=== PATIENT | male | born 1950 | race Caucasian/White ===

== ENCOUNTER 2018-05-28 18:50 | Emergency (ER) | payer OTHER, MEDICAID ==
[~2018-05-28] VITALS: Ht 152.4 cm; Wt 61.2 kg
[2018-05-28 18:56] VITALS: BP 145/67
--- NOTE | 2018-05-28 18:56 | NUR ---
Deepa heller in ED - 05/28/18 at 1858 by [facility] PT BIB AMBULANCE TO BED 12
--- NOTE | 2018-05-28 19:14 | NUR ---
PT PRESENTS TO ED BIB CARE FACILITY WITH C/O DISLODGEMENT OF PRE-EXISTING G-TUBE. NO OTHER COMLPAINTS AT THIS TIME. GTUBE SITE DRESSED WITH GAUZE DRESSING UPON ARRIVAL. NO BLEEDING NOTED TO SITE. PT PLACED INTO BED, PENDING MD CACERES. HX---MRCP, SEIZURE, G-TUBE, THYROID, HTN RX==BISACODYL 10MG, FOSAMAX 70MG, ASA 81MG, BUDESONIDE 0.5MG, CALCIUM CARB, DEPAKOTE 125MG, FLORASTOR, LAMICTAL 200MG, SYNTHROID 100MCG, LISINOPRIL 10MG, SINGULAIR 10MG, MIRALAX,
--- NOTE | 2018-05-28 19:56 | NUR ---
SPOKE WITH ADELAIDE FROM CARE FACILITY--INFORMED ME OF GTUBE SIZE OF 30F.
--- NOTE | 2018-05-28 21:36 | NUR ---
X-Ray at bedside.
--- NOTE | 2018-05-28 22:01 | NUR ---
SPOKE WITH ISAIAH FROM [facility] CARE [facility] FOR PT PICKUP
--- NOTE | 2018-05-28 23:33 | NUR ---
Patient discharged with v/s stable. Written and verbal after care instructions given and explained. Patient verbalized understanding. Wheel Chair Assisted with by caregiver. All questions addressed prior to discharge. Advised to follow up with PMD.
[2018-05-28 23:34] VITALS: BP 138/61
== END 2018-05-28 23:33 | disposition home or self-care (01) ==
LOC: MED 18:50
DX: K94.23 Gastrostomy malfunction (principal); I10 Essential (primary) hypertension; E07.9 Disorder of thyroid, unspecified
CPT/HCPCS: 43762; 74241; 99284

== ENCOUNTER 2020-09-14 14:49 | Inpatient (IN) | payer OTHER, MEDICAID, SELFPAY ==
[~2020-09-14] VITALS: Ht 162.6 cm; Wt 57.6 kg
[~2020-09-14 14:49] MED LIST: ALEN70TA85 GT; ASCO500T95 GT; ASPI-1822 GT; BISA-218 RC; CHOL2400 GT; DIVA125E1 GT; FLOR250 GT; LAM200 PO; LEVO500T98 GT; MIRABULK GT; OSC500 GT; POTA8TER12 GT; PUL.5N NEB; SYN.1 GT; TOP100 GT
--- NOTE | 2020-09-14 14:50 | NUR ---
PT [place] to bed 07 via estela.
[2020-09-14 14:55] VITALS: BP 120/80
--- NOTE | 2020-09-14 15:02 | NUR ---
70/M biba to ED with c/o abdominal distention. Patient brought in from senior living, per staff, patients abdomen is more distended than usual. Staff contacted patients primary doctor who suggested he be sent to ED to be checked out. Patient is nonverbal and at baseline according to staff, patient is quadriplegic, g-tube in place. Abomen appears distended and rigid, patient placed on bedside cardiac surgeon.
[2020-09-14] MEDS ORDERED: NACL 0.9% 1,000 ML IV ONE (15:25)
[2020-09-14 16:14] LABS: BASOPHILS # (AUTO) 0.1 K/uL (0.00-0.22); BASOPHILS % (AUTO) 0.6 % (0.0-2.0); EOSINOPHILS # (AUTO) 0.2 K/uL (0-0.4); EOSINOPHILS % (AUTO) 2.6 % (0.0-4.0); HEMATOCRIT 47.1 % (36-52); HEMOGLOBIN 15.9 g/dL (12.0-18.0); LYMPHOCYTES # (AUTO) 2.6 K/uL (2.0-11.5); MEAN CORPUSCULAR HEMOGLOBIN 34 pg (27-31); MEAN CORPUSCULAR HGB CONC 34 g/dL (33-37); MEAN CORPUSCULAR VOLUME 100.8 fL (80-94); MONOCYTES % (AUTO) 10.6 % (1.7-9.3); NEUTROPHILS # (AUTO) 5.4 K/uL (1.8-7.7); NEUTROPHILS % (AUTO) 58.2 % (42.2-75.2); PLATELET COUNT (AUTO) 192 K/uL (140-450); RED BLOOD CELL COUNT(AUTO) 4.67 MIL/uL (4.20-6.10); RED CELL DISTRIBUTION WIDTH 13.6 % (11.6-13.7); WHITE BLOOD COUNT (AUTO) 9.2 K/uL (4.8-10.8)
--- NOTE | 2020-09-14 16:20 | NUR ---
Attemted to obtain urine via catheter as ordered, unsuccessful, Dr. Wagner made aware.
[2020-09-14 16:28] LABS: ANION GAP 12.8 (8-16); CARBON DIOXIDE 27.1 mmol/L (21-32); POTASSIUM 3.9 mmol/L (3.5-5.1)
[2020-09-14] MEDS ORDERED: FLOR250 GT (16:28)
[2020-09-14] MEDS ORDERED: SIME80TA22 GT (16:28)
[2020-09-14] MEDS ORDERED: CHOL100013 GT (16:28)
[2020-09-14] MEDS ORDERED: POTA10TE31 GT (16:28)
[2020-09-14] MEDS ORDERED: MONT10TA35 GT (16:28)
[2020-09-14 16:43] LABS: ALBUMIN 3.1 g/dL (3.4-5.0); TOTAL BILIRUBIN 0.4 mg/dL (0.0-1.0)
--- NOTE | 2020-09-14 17:00 | NUR ---
Kelsey swab collected and given to lab.
--- NOTE | 2020-09-14 17:10 | NUR ---
PT taken to CT via ramber.
--- NOTE | 2020-09-14 19:17 | NUR ---
RECEIVED REPORT FROM MARIANN LUCAS FOR [facility]
[2020-09-14] MEDS ORDERED: cefTRIAXone 1,000 MG VIAL ONE (19:24)
[2020-09-14] MEDS ORDERED: DEXT 5% / NACL 0.45% 1,000 ML IV ONE (20:45)
--- NOTE | 2020-09-14 21:55 | NUR ---
UNABLE TO OBTAIN URINE VIA STRAIGHT CATHETERIZATION. URINE COLLECTION ENDORSED TO NEY LUCAS DURING REPORT.
--- NOTE | 2020-09-14 22:04 | NUR ---
Patient will be admitted to care of DR. HARRY. Admited to MED-SURG. Will go to room 120A. Belongings list completed. Report to NEY LUCAS.
[2020-09-14 22:10] VITALS: BP 102/68
--- NOTE | 2020-09-14 22:10 | NUR ---
RECEIVED PATIENT FROM ER NURSE VIA [facility] FOR CONTINUITY OF CARE. OPENS EYES, UNABLE TO MAKE NEEDS KNOWN. RESPIRATIONS EVEN, UNLABORED. NO S/S RESPIRATORY DISTRESS. S1/S2 AUSCULTATED. MEDSURG PATIENT. SKIN ASSESSMENT COMPLETED. SKIN WARM, DRY AND INTACT. IV SITE NOTED TO RIGHT FOOT 22G PATENT/INTACT, INFUSING FLUIDS WELL. ABDOMEN ROUND, LARGE AND DISTENDED. BOWEL SOUNDS ACTIVE x4 QUADRANTS. GT NOTED. PATIENT IS INCONTINENT OF B/B. MRSA SCREEN COMPLETED. PATIENT ORIENTED TO ROOM/STAFF/CALL LIGHT. PLAN OF CARE DISCUSSED. CALL LIGHT IN REACH. SAFETY PRECAUTIONS IN PLACE.
[2020-09-14 23:23] LABS: APPEARANCE,URINE CLEAR (CLEAR); BILIRUBIN,URINE NEGATIVE (NEGATIVE); BLOOD, URINE 3+ (NEGATIVE); COLOR,URINE YELLOW (YELLOW); LEUKOCYTE ESTERASE ,URINE 3+ (NEGATIVE); NITRITE, URINE NEGATIVE (NEGATIVE); PH,URINE 8.5 (5.0-9.0); UGLUCOSE NEGATIVE (NEGATIVE)
[2020-09-14 23:42] LABS: RBC,URINE 0-5 /HPF (0-5)
--- NOTE | 2020-09-14 23:50 | NUR ---
CALLED [facility] AT [phone] AND SPOKE TO BENJA DRAPER. FOR FURTHER INFORMATION FOR PATIENT, HE STATED TO CALL SHAYY WORKMAN AT [phone] IN THE MORNING FOR ANY QUESTIONS REGARDING PATIENT. PATIENT IS RESTING COMFORTABLY IN BED. NO S/S RESPIRATORY DISTRESS. FLACC 0. PATIENT CLEAN/DRY. SAFETY PRECAUTIONS IN PLACE. CALL LIGHT IN REACH AT ALL TIMES.
--- NOTE | 2020-09-15 00:19 | NUR ---
WILL ENDORSE TO AM SHIFT TO CALL [facility] IN THE MORNING TO TALK TO SHAYY WORKMAN REGARDING LACK OF GTUBE SYRINGE FOR PATIENT. PER BONNY YOUSIF, WE NEED TO TALK TO JACINTA.
--- NOTE | 2020-09-15 03:01 | NUR ---
PATIENT IS ASLEEP.
[2020-09-15] MEDS ORDERED: ONDANSETRON 4 MG/2 ML VIAL IVP PRN (03:20)
[2020-09-15] MEDS ORDERED: LORazepam 2 MG/ML VIAL IVP PRN (03:20)
[2020-09-15 04:00] VITALS: BP 104/57
--- NOTE | 2020-09-15 05:17 | NUR ---
PATIENT IS SLEEPING WELL. NO S/S ACUTE DISTRESS. PATIENT CLEAN/DRY. CALL LIGHT IN REACH. SAFETY PRECAUTIONS IN PLACE.
[2020-09-15 05:50] LABS: CARBON DIOXIDE 21.5 mmol/L (21-32); CREATININE 0.9 mg/dL (0.6-1.3); POTASSIUM 3.5 mmol/L (3.5-5.1)
[2020-09-15 06:47] LABS: BASOPHILS # (AUTO) 0.1 K/uL (0.00-0.22); BASOPHILS % (AUTO) 0.5 % (0.0-2.0); EOSINOPHILS # (AUTO) 0.2 K/uL (0-0.4); EOSINOPHILS % (AUTO) 1.7 % (0.0-4.0); HEMATOCRIT 45.6 % (36-52); HEMOGLOBIN 15.7 g/dL (12.0-18.0); LYMPHOCYTES # (AUTO) 1.4 K/uL (2.0-11.5); LYMPHOCYTES % (AUTO) 12.7 % (20.5-51.1); MEAN CORPUSCULAR HEMOGLOBIN 34 pg (27-31); MEAN CORPUSCULAR HGB CONC 35 g/dL (33-37); MEAN CORPUSCULAR VOLUME 98.7 fL (80-94); MONOCYTES # (AUTO) 1.2 K/uL (0.8-1.0); MONOCYTES % (AUTO) 11.1 % (1.7-9.3); NEUTROPHILS # (AUTO) 8.2 K/uL (1.8-7.7); PLATELET COUNT (AUTO) 182 K/uL (140-450); RED BLOOD CELL COUNT(AUTO) 4.62 MIL/uL (4.20-6.10); RED CELL DISTRIBUTION WIDTH 13.7 % (11.6-13.7)
[2020-09-15] MEDS: BUDESONIDE 0.5 MG/2 ML NEBU INH SCH ×2 (07:12→19:41)
--- NOTE | 2020-09-15 07:24 | NUR ---
PATIENT SEEN BY DR CHEN UROLOGIST AND INSERTED SAMPSON BUT URETHRAL RESTRICTION AND UNABLE TO INSERT SAMPSON.
--- NOTE | 2020-09-15 07:32 | NUR ---
ENDORSED PATIENT TO AM SHIFT NURSE FOR CONTINUITY OF CARE.
--- NOTE | 2020-09-15 07:36 | NUR ---
RECEIVED REPORT FROM NIGHT NURSE PATIENT IS AWAKE ON ROOM AIR, NON AMBULATORY, INCONTINENT, SKIN INTACT ON RESTRAINT MITTENS ON BOTH HAND PAT TRIES TO SCRATCH SELF, IV INTACT ON RIGHT FOOT WITH D5 0.45% SODIUM CHLORIDE 1000ML AT 100 MLS/HR. WITH GTUBE . SAFETY MEASURES IN PLACE AND CALL LIGHT WITHIN REACH. WILL CONTINUE TO MONITOR.
--- NOTE | 2020-09-15 08:00 | NUR ---
PATIENT ON MITTENS RESTRAIN ASSESSED AND RELEASED FOR 15 MINS, NO INCIDENT OF PATIENT SCRATCHING. PT IS STABLE AND NO DISTRESS NOTED.
--- NOTE | 2020-09-15 08:53 | NUR ---
PATIENT HAS BEEN SCREENED AND CATEGORIZED HIGH NUTRITION RISK. PATIENT WILL BE SEEN WITHIN 1-2 DAYS OF ADMISSION. 09/15/20-09/16/20 [facility] CONSULT RECEIVED FOR TUBE FEEDING AND FNS REFERRAL RECEIVED FOR DYSPHAGIA AND TUBE FEEDING. ERICA SAVAGE RD
[2020-09-15] MEDS ORDERED: NON-FORMULARY ITEM (Saccharomyces Boulardii* (Florastor*) 250 MG) GT SCH (09:00)
[2020-09-15] MEDS: TOPIRAMATE 100 MG TAB GT SCH ×2 (09:00→22:05)
[2020-09-15] MEDS ORDERED: NON-FORMULARY ITEM (Cholecalciferol (Vitamin D3) (Vitamin D3) 2,000 U) GT SCH (09:00)
[2020-09-15] MEDS: SIMETHICONE 40 MG/0.6 ML GT SCH ×4 (09:00→22:04)
[2020-09-15] MEDS: POLYETHYLENE GLYCOL 17 GM/PKT GT SCH (09:00)
[2020-09-15] MEDS ORDERED: LEVOTHYROXINE 0.1 MG TAB GT SCH (09:00)
[2020-09-15] MEDS: ASPIRIN 81 MG TAB.CHEW GT SCH (09:00)
[2020-09-15] MEDS: POTASSIUM CHLORIDE 20% 40 MEQ/15 ML UDC PO SCH (09:00)
[2020-09-15] MEDS: ASCORBIC ACID 500 MG TAB GT SCH ×2 (09:00→22:05)
[2020-09-15] MEDS: DIVALPROEX SPRINKLES 125 MG CAPDR GT SCH ×2 (09:00→22:03)
[2020-09-15] MEDS: CHOLECALCIFEROL 1,000 IU TAB GT SCH ×2 (09:00→22:06)
[2020-09-15] MEDS: LACTOBACILLUS RHAMNOSUS GG 1 EACH CAP GT SCH (09:00)
[2020-09-15] MEDS: CALCIUM CARBONATE 500 MG TAB GT SCH ×2 (09:00→22:04)
[2020-09-15] MEDS ORDERED: BUDESONIDE 0.5 MG/2 ML NEBU INH SCH (09:00)
--- NOTE | 2020-09-15 09:42 | NUR ---
MEDICATION DUE NON ADMINISTRATION PATIENT IS ON NOTHING BY MOUTH.
--- NOTE | 2020-09-15 09:49 | NUR ---
CALLED JACINTA LUCAS OF [facility] REGARDING PATIENT G TUBE CONNECTOR AND SAID SHE WOULD BE SENDING SYRINGES FOR THE GTUBE.
--- NOTE | 2020-09-15 10:00 | NUR ---
CHECK PATIENT RESTRAIN AND RELEASE FOR 15 MINS. PATIENT ON MITTENS RESTRAIN TO PREVENT PATIENT FROM SCRATCHING, NO INJURIES NOTED, PT IS STABLE.
--- NOTE | 2020-09-15 12:00 | NUR ---
MADE ROUNDS AND CHECK PT MITTENS RESTRAIN RELEASED FOR 15 MONS NO INJURIES NOTED, PT IS CALM AND STABLE.
--- NOTE | 2020-09-15 13:59 | NUR ---
09/15/20 RD INITIAL ASSESSMENT COMPLETED PLEASE REFER TO NUTRITION ASSESSMENT UNDER CARE ACTIVITY FOR ESTIMATED NUTRITIONAL NEEDS. 1. RECOMMEND JEVITY 1.2 @ 60ML/HR OR 1440 ML/DAY, FREE WATER FLUSH 95 ML Q4H. -THIS WILL PROVIDE 1728 KCAL, 80 GM PROTEIN WHICH WILL MEET ADEQUATE NUTRIENT NEEDS. 2. RD TO FOLLOW-UP 2-3 DAYS, HIGH RISK ERICA SAVAGE, RD
--- NOTE | 2020-09-15 14:00 | NUR ---
MADE ROUNDS REASSESSED PATIENT MITTENS RESTRAIN AND 15 MINS RELEASED, NO INJURIES NOTED PATIENT IS CALM AND RESTING.
--- NOTE | 2020-09-15 16:00 | NUR ---
MADE ROUND AND REASSESSED PATIENT ON RESTRAIN NO INJURIES NOTED AND RELEASED FOR 15 MINS. PATIENT IS STABLE AND CALM.
--- NOTE | 2020-09-15 16:48 | NUR ---
MEDICATION DUE NON ADMIN PT IS STILL NPO.
--- NOTE | 2020-09-15 16:56 | NUR ---
DC PLANNIN YRS OLD MALE PATIENT WAS ADMITTED FROM [facility] WITH A DX OF BLADDER OBSTRUCTION. PATIENT HAS A HX OF QUADRIPLEGIA ,SEIZURE, HYPOTHYROIDISM AND G-TUBE. CXR SHOWED CARDIOMEGALY ,MILD DEXTROSCOLIOSIS. RAPID COVID TEST NEGATIVE, URINE AND BLOOD CULTURE PENDING. STARTED ON IVF, IV ABX ROCEPHIN.CONTINUED HOME MEDS. CONSULTED WITH UROLOGIST FOR POSSIBLE CYSTOSCOPY ,URETHRAL DILATION, SAMPSON CATHETER. DC PLAN TO GO BACK TO [facility]. CM TO FOLLOW Addendum: 09/15/20 at 1712 by Mary Hamm RN DC PLANNING CALLED CASH POSTER ALANA ADAMS [phone] NOTIFIED HER PT NEEDS CONSENT FOR CYSTOSCOPY PER ALANA [facility] [phone]. CALLED LIZ UNABLE TO LEAVE MESSAGE. PER ALANA Moses DR CAN SIGN THE CONSENT AND PERFORM THE PROCEDURE. Addendum: 09/16/20 at 0833 by Mary Hamm RN DC PLANNING: CALLED LIZ AT [facility] AT [phone] LEFT A MESSAGE. CM TO FOLLOW Addendum: 09/16/20 at 0912 by Mary Hamm RN DC PLANNING: RECEIVED A CALL FROM [facility] [phone] DISCUSSED THE URGENT NEED FOR CONSENT FOR CYSTOSCOPY, URETHRAL DILATION, PER LIZ UNABLE TO GIVE CONSENT BY HERSELF, THERE IS A BROTHER NAME ELKIN RIVERA CAN GIVE CONSENT #[phone] IF ELKIN CAN NOT BE REACHED , THE [facility] NURSE HAS TO REVIEW IT IN DETAIL NEEDS A PROGRESS NOTES TYPE OF PROCEDURE, WHAT TYPE OF ANESTHESIA WILL BE USED. THE PROCESS MIGHT TAKE LONGER TIME. BUT IF THE 2 DOCTORS DECIDED IT IS URGENT CAN SIGNED THE CONSENT AND PERFORM THE PROCEDURE. CM TO FOLLOW Addendum: 09/16/20 at 1505 by Mary Hamm RN DC PLANNING: CALLED DR CHEN UROLOGIST DISCUSSED THE ISSUES FOR CONSENT. HE STATED HE IS NOT AVAILABLE TO PERFORM CYSTOSCOPY TODAY BUT HE SCHEDULED IT TOMORROW 09/17/20 AT 1130 AM. OK TO GIVE HIS NUMBER FOR THE [facility] TO DISCUSSED THE CASE. CALLED DANIELE EXPERIMENTAL PHYSICIST E-MAILED THE PROGRESS NOTES AND ORDER AND PHONE NUMBER OF DR CHEN. BALJINDER TO FOLLOW Addendum: 09/17/20 at 09 by Mary Hamm RN DC PLANNING: RECEIVED A CALL FROM [facility] MANAGER [phone] SPOKE WITH ARIAN MERCER THE CONSENT IS DONE AND I PROVIDED THE FAX NUMBER AWAITING FOR FAX. BALJINDER TO FOLLOW Addendum: 09/17/20 at 920 by Mary Hamm RN DC PLANNING: RECEIVED A FAX FROM [facility] CONSENT SIGNED BY JENNIFER SEYMOUR RN [facility] NURSE ADVOCATE. NOTIFIED DR CHEN UROLOGIST AND SHAYY SALMERON CM TO FOLLOW Addendum: 09/18/20 at 1344 by Mary Hamm RN DC PLANNING: UROLOGIST DR CHEN PERFORMED CYSTOSCOPY DISTENDED BLADDER WITH MULTIPLE DIVERTICULI AND SEVERE TRABECULATION. CLOUDY URINE AND PURULENT DEBRIS NOTED WITHIN BLADDER. SENT URINE CULTURE. INSERTED 18 BOTSWANAN INDWELLING CATHETER. DC PLAN AWAITING FOR URINE CULTURE. CALLED PT'S RESIDENCE [facility] SPOKE WITH ALANA ADAMS PIN WORKER AT [phone] DISCUSSED THE DC PLAN, PER ALANA IF THERE IS NO ABX ORDERED THEY CAN ACCEPT PATIENT WITH SAMPSON CATHETER AND CAN ARRANGE TRANSPORT WITH [employer] [email or web address] TRANSPORT. # FOR [email or web address]) [phone] BILL GOES TO [facility]. IF PATIENT HAS ANTIBIOTIC ORDER CAN GO TO [facility] UNDER DR HARRY. PLS CALL MOISES ADMIN AT [phone] . BALJINDER TO FOLLOW
--- NOTE | 2020-09-15 18:00 | NUR ---
MITTEN RESTRAIN CHECK AND RELEASED FOR 15 MINS, NO INJURIES NOTED PATIENT IS SLEEPING AND CALM.
--- NOTE | 2020-09-15 18:42 | NUR ---
MEDICATION DUE GIVEN INFUSING WELL.PT IS RESTING.
--- NOTE | 2020-09-15 19:23 | NUR ---
ENDORSED TO NIGHT NURSE FOR CONTINUITY OF CARE. PT IS STABLE.
--- NOTE | 2020-09-15 19:30 | NUR ---
RECEIVED REPORT AT BEDSIDE FROM DAYSHIFT NURSE FOR CONTINUITY OF CARE, PT IN STABLE CONDITION.
--- NOTE | 2020-09-15 20:00 | NUR ---
PT LYING IN BED HOB UP 45% AOX1 WITH MITTS IN HIS HAND TO PROTECT HIS FACE FROM BEING SCRATCHED. PT NOTED WITH BILATERAL CONTRACTIONS. HE WAS TUNED, CHANGED AND REPOSITIONED IN BED. IV SITE IS LEFT AC 20G INTACT AND RUNNING NORMAL SALINE AT 80MLS/HR. ALL FALLS PRECAUTIONS IN PLACE.V/S FOLLOWS: T 97.1 P 69 R 17 B/P 98/59 02%95 ALL FALLS PRECAUTIONS IN PLACE.
--- NOTE | 2020-09-15 21:00 | NUR ---
COLE Curiel, CHANGED DIET ORDER TO NPO EXCPECT MEDS PT GIVEN DUE MEDS VIA [facility].
--- NOTE | 2020-09-15 22:00 | NUR ---
PT TURNED, CHANGED AND REPOSITIONED IN BED. NEW BAG OF D5 1/2 NS CHANGED, NO S/S OF IN JURY UNDER HAND MITTS.
[2020-09-15] MEDS: MONTELUKAST SODIUM 10 MG TAB GT SCH (22:04)
--- NOTE | 2020-09-16 00:30 | NUR ---
PT NOW NPO EXCEPT MEDS. HE WAS TURNED, CHANGED AND REPOSITIONED IN BED. NO S/S OF PAIN OR DISTRESS MITTS IN PLACE NO INJURES NOTED TO SKIN. FLUIDS RUNNING ORDERED ALL ORDERED PROTOCOLS IN PLACE.
--- NOTE | 2020-09-16 02:00 | NUR ---
PT WAS TURNED AND REPOSITIONED IN BED. MITTS IN PLACE NO S/S OF PAIN OR DISTRESS NOTED.
[2020-09-16 04:00] VITALS: BP_SYST 104; BP_SYST 121; BP_DIAS 57; BP_DIAS 81
--- NOTE | 2020-09-16 04:00 | NUR ---
PT WAS TURNED, CLEANED AND REPOSITIONED IN BED. ALL ORDERED PROTOCOLS IN PLACE.
[2020-09-16 05:49] LABS: ANION GAP 14.7 (8-16); CARBON DIOXIDE 21.9 mmol/L (21-32); CREATININE 0.9 mg/dL (0.6-1.3); POTASSIUM 3.6 mmol/L (3.5-5.1)
[2020-09-16] MEDS: LEVOTHYROXINE 0.1 MG TAB GT SCH (06:00)
[2020-09-16 06:11] LABS: BASOPHILS # (AUTO) 0.1 K/uL (0.00-0.22); BASOPHILS % (AUTO) 0.7 % (0.0-2.0); EOSINOPHILS # (AUTO) 0.3 K/uL (0-0.4); EOSINOPHILS % (AUTO) 3.4 % (0.0-4.0); HEMATOCRIT 48.1 % (36-52); HEMOGLOBIN 16.6 g/dL (12.0-18.0); LYMPHOCYTES # (AUTO) 2.2 K/uL (2.0-11.5); LYMPHOCYTES % (AUTO) 23.6 % (20.5-51.1); MEAN CORPUSCULAR HEMOGLOBIN 35 pg (27-31); MEAN CORPUSCULAR HGB CONC 35 g/dL (33-37); MEAN CORPUSCULAR VOLUME 99.8 fL (80-94); MONOCYTES # (AUTO) 1.3 K/uL (0.8-1.0); MONOCYTES % (AUTO) 13.3 % (1.7-9.3); NEUTROPHILS # (AUTO) 5.6 K/uL (1.8-7.7); PLATELET COUNT (AUTO) 179 K/uL (140-450); RED BLOOD CELL COUNT(AUTO) 4.82 MIL/uL (4.20-6.10); RED CELL DISTRIBUTION WIDTH 13.5 % (11.6-13.7); WHITE BLOOD COUNT (AUTO) 9.4 K/uL (4.8-10.8)
--- NOTE | 2020-09-16 06:30 | NUR ---
SYNTHROID HELD DUE TO PT MADE NPO.
--- NOTE | 2020-09-16 07:30 | NUR ---
RECEIVED REPORT FROM RESTAURANT HOSTESS NURSE. PATIENT LYING DOWN IN BED. NO DISTRESS NOTED. ON ROOM AIR, MITTENS IN PLACE DUE TO SCRATCHING FACE BEHAVIOR, IV SITE INTACT, PATENT, AND INFUSING IVF PER MD ORDERS. BUE/BLE CONTRACTURES NOTED. REVIEWED PLAN OF CARE WITH PATIENT. UNABLE TO COMPREHEND. SAFETY MEASURES IN PLACE, CALL LIGHT WITHIN REACH. WILL CONTINUE TO MONITOR.
[2020-09-16] MEDS: BUDESONIDE 0.5 MG/2 ML NEBU INH SCH ×2 (07:48→19:32)
[2020-09-16] MEDS: ASPIRIN 81 MG TAB.CHEW GT SCH (09:00)
[2020-09-16] MEDS: DIVALPROEX SPRINKLES 125 MG CAPDR GT SCH ×3 (09:00→20:55)
[2020-09-16] MEDS: ASCORBIC ACID 500 MG TAB GT SCH ×2 (09:00→20:56)
[2020-09-16] MEDS: POTASSIUM CHLORIDE 20% 40 MEQ/15 ML UDC PO SCH ×2 (09:00→10:22)
[2020-09-16] MEDS: POLYETHYLENE GLYCOL 17 GM/PKT GT SCH (09:00)
[2020-09-16] MEDS: LACTOBACILLUS RHAMNOSUS GG 1 EACH CAP GT SCH ×2 (09:00→10:23)
[2020-09-16] MEDS: TOPIRAMATE 100 MG TAB GT SCH ×3 (09:00→20:56)
[2020-09-16] MEDS: CHOLECALCIFEROL 1,000 IU TAB GT SCH ×2 (09:00→20:55)
[2020-09-16] MEDS: CALCIUM CARBONATE 500 MG TAB GT SCH ×2 (09:00→20:56)
[2020-09-16] MEDS: SIMETHICONE 40 MG/0.6 ML GT SCH ×4 (09:00→21:06)
--- NOTE | 2020-09-16 09:36 | NUR ---
SCHEDULED MEDICATIONS NOT GIVEN PATIENT IS NPO. AWAITING FOR CYSTOSCOPY URETHRAL DILATION AND SAMPSON CATHETER PLACEMENT.
--- NOTE | 2020-09-16 10:26 | NUR ---
DR. CHEN CALLED. PER , HE WILL DO CYTOSCOPY TOMORROW AT 1100 AM. PATIENT CAN RESUME FEEDINGS AND MEDICATIONS. KEEP NPO AFTER MIDNIGHT.
--- NOTE | 2020-09-16 10:43 | NUR ---
PT. ADMITTED WITH LOW DMITRI SCALE AT RISK, SEVERE CONTRACTURES TO ALL EXTREMITIES, SKIN INTACT, INCONTINENT ASSOCIATED DERMATITIS TO GROINS AND SCROTAL AREA, MOIST AND RED, CONTINUE TO FOLLOW PRESSURE INJURY PREVENTION INTERVENTIONS. -APPLY HYDRAGUARD TO GROINS AND SCROTAL BID AND PRN IF SOILING -TURN AND REPOSITION PATIENT Q 2H -ASSESS AND MONITOR SKIN CONDITION DURING POSITION CHANGE -OFFLOAD BILATERAL HEELS BY PLACING PILLOWS UNDER CALVES AT ALL TIMES, UNLESS OTHERWISE CONTRAINDICATED -PRESSURE REDISTRIBUTION BY PLACING PILLOWS AND OFFLOADING SACRALCOCCYX -KEEP SKIN CLEAN AND DRY AT ALL TIMES.
--- NOTE | 2020-09-16 12:30 | NUR ---
ASSISTED RESTRICTIVE PREPARATION OPERATOR IN CLEANING AND REPOSITIONING PATIENT. WILL CONTINUE TO MONITOR.
[2020-09-16] MEDS: MUPIROCIN CA NASAL 2% 1GM TUBE NS SCH (13:43)
[2020-09-16] MEDS: HYDRAGUARD CREAM TP SCH (13:44)
[2020-09-16] MEDS: CHLORHEXADINE GLUC 2% CLOTH TP SCH (13:44)
--- NOTE | 2020-09-16 13:54 | NUR ---
SCHEDULED MEDICATIONS DUE GIVEN. WILL CONTINUE TO MONITOR.
--- NOTE | 2020-09-16 13:58 | NUR ---
LATE ENTRY -- D5NS INFUSION STOPPED AT 2200 09/14/20 FOR TRANSPORT TO INPATIENT UNIT. RESUMED ON TELEMETRY.
--- NOTE | 2020-09-16 17:53 | NUR ---
ASSISTED CHIEF NUCLEAR MEDICINE TECHNOLOGIST IN CLEANING AND REPOSITIONING PATIENT. WILL CONTINUE TO MONITOR.
--- NOTE | 2020-09-16 19:16 | NUR ---
GAVE REPORT TO POULTRY PACKER NURSE FOR CONTINUITY OF CARE. PATIENT IN STABLE CONDITION.
--- NOTE | 2020-09-16 19:25 | NUR ---
RECEIVED BEDSIDE REPORT FROM PHIL LUCAS FOR CONTINUITY OF CARE. PT IS APHASIC, NONVERBAL. ON RA WITH BREATHING UNLABORED. CONGESTION APPARENT. RT AT BEDSIDE PROVIDING BREATHING TREATMENT. G TUBE IN PLACE RUNNING JEVITY 1.2 AT 60 ML PER HOUR PER ORDER. SKIN IS WARM, DRY, AND INTACT. PERINEAL REDNESS APPARENT. IV IS IN THE RIGHT FOOT 22 GAUGE RUNNING D5 HALF NS. PT IS BEDBOUND WITH MITTENS IN PLACE. UPPER AND LOWER EXTREMITIES CONTRACTED. CONTACT PRECAUTIONS FOR MRSA NARES.PT IS STABLE. PLAN OF CARE DISCUSSED.
[2020-09-16] MEDS: MONTELUKAST SODIUM 10 MG TAB GT SCH (20:56)
--- NOTE | 2020-09-16 21:30 | NUR ---
PT IS AWAKE LAYING IN SEMI FOWLERS POSITION. G TUBE RESIDUAL IS LESS THAN 5 ML. PT IS TOLERATING FEEDING WELL. IV IS PATENT AND FLUSHING WELL. PT WAS CHANGED AND REPOSITIONED. PT VOIDED CLEAR, YELLOW URINE IN DIAPER. NO DISTRESS AT THIS TIME.
--- NOTE | 2020-09-16 23:30 | NUR ---
ROUNDED ON PT. BREATHING IS UNLABORED ON RA. PT IS NONVERBAL. PT IS ATTEMPTING TO SCRATCH FACE WITH MITTENS. DRY DIAPER IN PLACE. BED ALARM IS ON AND PT IS STABLE.
--- NOTE | 2020-09-17 | NUR ---
G TUBE FEEDING WAS STOPPED FOR ORDER OF NPO AFTER MIDNIGHT.
[2020-09-17] MEDS: HYDRAGUARD CREAM TP SCH ×2 (00:40→13:45)
--- NOTE | 2020-09-17 02:00 | NUR ---
PT IS CHANGED AND REPOSITIONED. PT VOIDED IN DIAPER. BREATHING IS UNLABORED. PT TOLERATED CHANGING WELL. IV FLUIDS ARE PATENT AND INFUSING. NO DISTRESS AT THIS TIME. WILL CONTINUE TO MONITOR.
[2020-09-17 04:00] VITALS: BP 103/68
--- NOTE | 2020-09-17 04:00 | NUR ---
PT IS SLEEPING. CHEST RISE AND FALL IS SYMMETRICAL. BREATHING IS REGULAR AND EVEN. NO RESPIRATORY DISTRESS NOTED ON RA. BED IN THE LOWEST POSITION. BED ALARM ON. PT IS STABLE.
[2020-09-17] MEDS: LEVOTHYROXINE 0.1 MG TAB GT SCH (05:21)
--- NOTE | 2020-09-17 06:00 | NUR ---
PT IS AWAKE, LAYING IN BED WITH EYES OPEN. DIAPER WAS CHANGED IT WAS SOILED WITH URINE. PT TOLERATED MOVEMENT WELL. COUGHING INTERMITTENTLY, PRODUCTIVE. NO RESPIRATORY DISTRESS NOTED. IV IS PATENT AND INTACT. PT IS STABLE.
[2020-09-17 06:15] LABS: BASOPHILS # (AUTO) 0.1 K/uL (0.00-0.22); BASOPHILS % (AUTO) 0.9 % (0.0-2.0); EOSINOPHILS # (AUTO) 0.6 K/uL (0-0.4); EOSINOPHILS % (AUTO) 6.1 % (0.0-4.0); HEMOGLOBIN 16.6 g/dL (12.0-18.0); LYMPHOCYTES # (AUTO) 3.1 K/uL (2.0-11.5); LYMPHOCYTES % (AUTO) 29.4 % (20.5-51.1); MEAN CORPUSCULAR HEMOGLOBIN 34 pg (27-31); MEAN CORPUSCULAR HGB CONC 34 g/dL (33-37); MONOCYTES # (AUTO) 1.4 K/uL (0.8-1.0); MONOCYTES % (AUTO) 13.1 % (1.7-9.3); NEUTROPHILS # (AUTO) 5.3 K/uL (1.8-7.7); NEUTROPHILS % (AUTO) 50.5 % (42.2-75.2); PLATELET COUNT (AUTO) 181 K/uL (140-450); RED CELL DISTRIBUTION WIDTH 13.6 % (11.6-13.7); WHITE BLOOD COUNT (AUTO) 10.5 K/uL (4.8-10.8)
[2020-09-17 06:26] LABS: ANION GAP 15.3 (8-16); CARBON DIOXIDE 22.8 mmol/L (21-32); POTASSIUM 4.1 mmol/L (3.5-5.1)
[2020-09-17] MEDS: BUDESONIDE 0.5 MG/2 ML NEBU INH SCH ×2 (07:24→19:42)
--- NOTE | 2020-09-17 07:25 | NUR ---
ENDORSED PT TO DAY SHIFT NURSE FOR CONTINUITY OF CARE. PT IS STABLE AT THIS TIME. PLAN OF CARE DISCUSSED.
--- NOTE | 2020-09-17 07:28 | NUR ---
RECEIVED PATIENT FROM NIGHT NURSE. PATIENT IN BED SLEEPING, CHEST NOTED RISING. RESP EVEN AND UNLABORED ON ROOM AIR. RT AT BEDSIDE FOR TREATMENT. NO NOTED DISTRESS AT THIS TIME. SEIZURE PRECAUTION IN PLACE. RIGHT FOOT 22G SL. UPPER BILATERAL MITTENS RESTRAINTS NOTED. HOB ELEVATED. SAFETY MEASURES IN PLACE. CALL LIGHT WITHIN REACH. WILL CONTINUE TO MONITOR.
[2020-09-17] MEDS: POTASSIUM CHLORIDE 20% 40 MEQ/15 ML UDC PO SCH (08:47)
[2020-09-17] MEDS: CALCIUM CARBONATE 500 MG TAB GT SCH ×2 (08:48→21:02)
[2020-09-17] MEDS: DIVALPROEX SPRINKLES 125 MG CAPDR GT SCH ×2 (08:48→21:01)
[2020-09-17] MEDS: ASCORBIC ACID 500 MG TAB GT SCH ×2 (08:48→21:03)
[2020-09-17] MEDS: CHOLECALCIFEROL 1,000 IU TAB GT SCH ×2 (08:48→21:03)
[2020-09-17] MEDS: TOPIRAMATE 100 MG TAB GT SCH ×2 (08:48→21:02)
[2020-09-17] MEDS: ASPIRIN 81 MG TAB.CHEW GT SCH (08:49)
[2020-09-17] MEDS: LACTOBACILLUS RHAMNOSUS GG 1 EACH CAP GT SCH (08:49)
[2020-09-17] MEDS: POLYETHYLENE GLYCOL 17 GM/PKT GT SCH (08:49)
[2020-09-17] MEDS: SIMETHICONE 40 MG/0.6 ML GT SCH ×4 (08:50→21:02)
--- NOTE | 2020-09-17 09:16 | NUR ---
PATIENT IN BED AWAKE AND ALERT. EYE OPENING. RESPONDING TO NAME TURNING HEAD AND TRACK. RESP EVEN AND UNLABORED ON ROOM AIR. NO NOTED DISTRESS AT THIS TIME. SKIN WARM TO TOUCH AND DRY. RIGHT FOOT ACCESS 22G INTACT AND PATENT, SL. LUNGS CLEAR AT THIS TIME. NO NOTED DISTRESS. CALL LIGHT WITHIN REACH. WILL CONTINUE TO MONITOR. Addendum: 09/17/20 at 0928 by Rudolph Hernandez RN MORNING ROUTINE MEDICATIONS GIVEN VIA GTUBE, RESIDUAL CHECK 0ML. OK PER DR CHEN FOR MEDICATION ADMINISTRATION THIS MORNING. PATIENT SCHEDULED FOR PROCEDURE AT [address] CHEN.
--- NOTE | 2020-09-17 10:20 | NUR ---
ENDORSED PATIENT TO PHIL LUCAS FOR CONTINUITY OF CARE. PATIENT IN STABLE CONDITION.
--- NOTE | 2020-09-17 11:10 | NUR ---
ANTHESIOLOGIST ON UNIT REVIEWING PLAN OF CARE WITH PATIENT. WILL CONTINUE TO MONITOR.
--- NOTE | 2020-09-17 11:30 | NUR ---
OR NURSES TOOK PATIENT FOR SURGERY. WILL CONTINUE TO MONITOR WHEN PATIENT RETURNS.
[2020-09-17] MEDS ORDERED: ONDANSETRON 4 MG/2 ML VIAL ONE (11:40)
[2020-09-17] MEDS ORDERED: DEXAMETHASONE 4 MG/ML VIAL ONE (11:40)
[2020-09-17] MEDS ORDERED: SEVOFLURANE 250 ML BTL INH ONE (11:40)
[2020-09-17] MEDS ORDERED: PROPOFOL 200 MG/20 ML VIAL IV ONE (11:40)
[2020-09-17] MEDS ORDERED: LIDOCAINE 2% 100 MG/5 ML SYR IVP ONE (11:40)
[2020-09-17] MEDS ORDERED: fentaNYL citrate 0.05 MG/ML VIAL ONE (11:40)
[2020-09-17] MEDS ORDERED: METOCLOPRAMIDE 10 MG/2 ML INJ VIAL ONE (11:40)
[2020-09-17] MEDS ORDERED: MEPERIDINE 25 MG/ML SYR IVP PRN (12:15)
[2020-09-17] MEDS ORDERED: LACTATED RINGERS 1,000 ML IV SCH (12:15)
[2020-09-17] MEDS ORDERED: ONDANSETRON 4 MG/2 ML VIAL IVP PRN (12:15)
[2020-09-17] MEDS ORDERED: HYDROmorphone 1 MG/ML AMP IVP PRN (12:15)
[2020-09-17] MEDS ORDERED: diphenhydrAMINE 50 MG/ML VIAL IVP PRN (12:15)
--- NOTE | 2020-09-17 13:37 | NUR ---
PATIENT BACK FROM OR. NO DISTRESS NOTED. VITALS WNL. WILL CONTINUE TO MONITOR.
[2020-09-17] MEDS: MUPIROCIN CA NASAL 2% 1GM TUBE NS SCH (13:45)
[2020-09-17] MEDS: CHLORHEXADINE GLUC 2% CLOTH TP SCH (13:45)
--- NOTE | 2020-09-17 13:46 | NUR ---
SCHEDULED MEDICATIONS DUE GIVEN. WILL CONTINUE TO MONITOR.
--- NOTE | 2020-09-17 14:40 | NUR ---
09/17/20 RD FOLLOW UP COMPLETED PLEASE REFER TO NUTRITION ASSESSMENT UNDER CARE ACTIVITY FOR ESTIMATED NUTRITIONAL NEEDS. 1. CONTINUE JEVITY 1.2 @ 60ML/HR OR 1.5 L/DAY, FREE WATER FLUSH 95 ML Q4H. -THIS WILL PROVIDE 1728 KCAL, 80 GM PROTEIN WHICH WILL MEET ADEQUATE NUTRIENT NEEDS. 2. RD TO FOLLOW-UP 2-3 DAYS, HIGH RISK ERICA SAVAGE, RD
[2020-09-17 16:00] VITALS: BP 103/70
--- NOTE | 2020-09-17 17:00 | NUR ---
ASSISTED TOOL KEEPER IN CLEANING AND REPOSITIONING PATIENT. PATIENT TOLERATED WELL. WILL CONTINUE TO MONITOR.
--- NOTE | 2020-09-17 19:30 | NUR ---
RECD. RESTING IN BED, AWAKE, APHASIC. RESPIRATION EVEN AND UNLABORED. ON BILATERAL MITTENS, PATIENT IS TRYING TO SCRATCH EARS AND FACE INTERMITTENTLY. GT FEEDING OF JEVITY 1.2 INFUSING AT 40 ML/HR, GT SIDE DRY AND INTACT. IV OF NS AT INFUSING AT 10 ML/HR, RIGHT FOOT G22, BILATERAL CONTRACTURES NOTED. F/C PATENT DRAINING REDDISH URINE, NO CLOTS IN THE TUBES. ON SEIZURE PRECAUTION, SIDE RAILS WITH PADS. NO APPEARANCE OF PAIN NOTED, FLACC - 0.
--- NOTE | 2020-09-17 19:30 | NUR ---
GAVE REPORT TO CHANNEL LIP WETTER NURSE FOR CONTINUITY OF CARE. PATIENT IN STABLE CONDITION.
[2020-09-17 20:00] VITALS: BP 90/56
--- NOTE | 2020-09-17 20:00 | NUR ---
SLEEPING COMFORTABLY IN BED. O2 SAT - 88%, RT CAME AND PUT ON 2 LITERS VIA N/C, 02 SAT INCREASED TO 91%. NO RESPIRATORY DISTRESS NOTED.
--- NOTE | 2020-09-17 21:01 | NUR ---
RESIDUAL CHECKED - 5 ML. TOLERATING GT FEEDING WELL. SCHEDULED MEDICATIONS GIVEN BY GT.
[2020-09-17] MEDS: MONTELUKAST SODIUM 10 MG TAB GT SCH (21:07)
--- NOTE | 2020-09-18 | NUR ---
SLEEPING COMFORTABLY IN BED, RESPIRATION EVEN AND UNLABORED. 02 SAT- 93% ON 02 AT 2 LITERS VIA N/C.
[2020-09-18] MEDS: HYDRAGUARD CREAM TP SCH ×2 (01:03→13:41)
--- NOTE | 2020-09-18 02:00 | NUR ---
WITH COUGHING, SUCTIONING DONE, MINIMAL AMOUNT OF WHITE PHLEGM OBTAINED. HOB MAINTAINED ELEVATED AT 35 DEGREES.
--- NOTE | 2020-09-18 04:00 | NUR ---
RESPIRATION EVEN AND UNLABORED ASLEEP IN BED, 02 SAT -93%.
[2020-09-18 05:30] LABS: BASOPHILS # (AUTO) 0.1 K/uL (0.00-0.22); BASOPHILS % (AUTO) 0.8 % (0.0-2.0); EOSINOPHILS # (AUTO) 0.1 K/uL (0-0.4); EOSINOPHILS % (AUTO) 0.4 % (0.0-4.0); HEMOGLOBIN 15.6 g/dL (12.0-18.0); LYMPHOCYTES # (AUTO) 2.3 K/uL (2.0-11.5); LYMPHOCYTES % (AUTO) 17.7 % (20.5-51.1); MEAN CORPUSCULAR HEMOGLOBIN 35 pg (27-31); MEAN CORPUSCULAR HGB CONC 35 g/dL (33-37); MEAN CORPUSCULAR VOLUME 99.5 fL (80-94); MONOCYTES # (AUTO) 1.1 K/uL (0.8-1.0); MONOCYTES % (AUTO) 8.1 % (1.7-9.3); NEUTROPHILS # (AUTO) 9.6 K/uL (1.8-7.7); PLATELET COUNT (AUTO) 309 K/uL (140-450); RED BLOOD CELL COUNT(AUTO) 4.52 MIL/uL (4.20-6.10); RED CELL DISTRIBUTION WIDTH 13.5 % (11.6-13.7); WHITE BLOOD COUNT (AUTO) 13.2 K/uL (4.8-10.8)
[2020-09-18 05:44] LABS: ALBUMIN 2.7 g/dL (3.4-5.0); ANION GAP 17.9 (8-16); CARBON DIOXIDE 20.1 mmol/L (21-32); TOTAL BILIRUBIN 0.3 mg/dL (0.0-1.0)
[2020-09-18] MEDS: LEVOTHYROXINE 0.1 MG TAB GT SCH (06:16)
--- NOTE | 2020-09-18 07:29 | NUR ---
CONDITION REMAIN STABLE. ENDORSED TO AM SHIFT NURSES FOR CONTINUITY OF CARE.
[2020-09-18] MEDS: BUDESONIDE 0.5 MG/2 ML NEBU INH SCH (07:30)
--- NOTE | 2020-09-18 07:30 | NUR ---
PT RECEIVED FROM FOUNDRY PATTERNMAKER NURSE. PT RESTING IN BED EYES OPEN. NO S/S OF DISTRESS. ALL SAFETY MEASURES ARE IN PLACE. CALL LIGHT WITHIN REACH.
[2020-09-18 08:00] VITALS: BP_SYST 132; BP_SYST 92; BP_DIAS 57; BP_DIAS 88
[2020-09-18] MEDS ORDERED: levoFLOXacin 500 MG TAB GT SCH (09:00)
[2020-09-18] MEDS: TOPIRAMATE 100 MG TAB GT SCH (09:41)
[2020-09-18] MEDS: LACTOBACILLUS RHAMNOSUS GG 1 EACH CAP GT SCH (09:41)
[2020-09-18] MEDS: ASPIRIN 81 MG TAB.CHEW GT SCH (09:42)
[2020-09-18] MEDS: DIVALPROEX SPRINKLES 125 MG CAPDR GT SCH (09:42)
[2020-09-18] MEDS: CALCIUM CARBONATE 500 MG TAB GT SCH (09:43)
[2020-09-18] MEDS: ASCORBIC ACID 500 MG TAB GT SCH (09:43)
[2020-09-18] MEDS: CHOLECALCIFEROL 1,000 IU TAB GT SCH (09:43)
[2020-09-18] MEDS: POTASSIUM CHLORIDE 20% 40 MEQ/15 ML UDC PO SCH (09:43)
[2020-09-18] MEDS: SIMETHICONE 40 MG/0.6 ML GT SCH ×2 (09:44→13:40)
[2020-09-18] MEDS: POLYETHYLENE GLYCOL 17 GM/PKT GT SCH (09:44)
--- NOTE | 2020-09-18 09:45 | NUR ---
MEDICATIONS GIVEN PER MD ORDER. PT EDUCATED . PT VERBALIZED UNDERSTANDING.
--- NOTE | 2020-09-18 11:44 | NUR ---
PT CHANGED AND REPOSITIONED. TOLERATED WELL
[2020-09-18] MEDS ORDERED: LEVO500T98 GT (13:29)
--- NOTE | 2020-09-18 13:30 | NUR ---
PT MEDICATIONS GIVEN PER MD ORDER.PT EDUCATED. PT UNABLE TO VERBALIZE UNDERSTANDING . ALL QUESTIONS REGARDING MEDS ANSWERED. PT TOLERATED WELL. CALL LIGHT WITHIN REACH .
[2020-09-18] MEDS: MUPIROCIN CA NASAL 2% 1GM TUBE NS SCH (13:40)
[2020-09-18] MEDS: CHLORHEXADINE GLUC 2% CLOTH TP SCH (13:41)
--- NOTE | 2020-09-18 14:20 | NUR ---
PT RESTING IN BED. NO S/S OF DISTRESS. CALL LIGHT WITHIN REACH
[2020-09-18 14:29] VITALS: BP 93/58
--- NOTE | 2020-09-18 15:10 | NUR ---
PT LEFT UNIT. IV REMOVED CANULA INTACT. PT UNABLE TO VERBALIZE UNDERSTANDING FOR CONTINUITY OF CARE. ARM BAND REMOVED. [facility] CALLED. NO ANSWER LEFT VOICEMAIL.
== END 2020-09-18 15:15 | disposition home or self-care (01) | DRG 871 ==
LOC: MED 14:49 → MTU 20:53
PROVIDERS: ADMIT Preventive Medicine Preventive Medicine/Occupational Environmental Medicine; ATTEND Preventive Medicine Preventive Medicine/Occupational Environmental Medicine
PROC: 0WHR8YZ Insertion of Other Device into Genitourinary Tract, Via Natural or Artificial Opening Endoscopic (ICD-10-PCS; 2020-09-17)
PROC: 0T7D8ZZ Dilation of Urethra, Via Natural or Artificial Opening Endoscopic (ICD-10-PCS; principal; 2020-09-17 11:30)
DX: A41.9 Sepsis, unspecified organism (principal); G92 Toxic encephalopathy; E43 Unspecified severe protein-calorie malnutrition; N39.0 Urinary tract infection, site not specified; J96.10 Chronic respiratory failure, unspecified whether with hypoxia or hypercapnia; E03.9 Hypothyroidism, unspecified; E55.9 Vitamin D deficiency, unspecified; E88.09 Other disorders of plasma-protein metabolism, not elsewhere classified; F79 Unspecified intellectual disabilities; G40.909 Epilepsy, unspecified, not intractable, without status epilepticus; Z93.1 Gastrostomy status; Z20.822 Contact with and (suspected) exposure to COVID-19; B96.5 Pseudomonas (aeruginosa) (mallei) (pseudomallei) as the cause of diseases classified elsewhere; I10 Essential (primary) hypertension; J45.909 Unspecified asthma, uncomplicated; K40.90 Unilateral inguinal hernia, without obstruction or gangrene, not specified as recurrent; K43.9 Ventral hernia without obstruction or gangrene; K57.90 Diverticulosis of intestine, part unspecified, without perforation or abscess without bleeding; K80.20 Calculus of gallbladder without cholecystitis without obstruction; M41.9 Scoliosis, unspecified; N32.3 Diverticulum of bladder; R13.10 Dysphagia, unspecified; Z79.899 Other long term (current) drug therapy
CPT/HCPCS: 36415; 71045; 80048; 80053; 81001; 83605; 85025; 85651; 86140; 87081; 87086; 93005; 94640; 96361; 96365; 99285; C1758; C1769; J0696; J1100; J2001; J2405; J2704; J2765; J3010; J7060; J7120; J7626

== ENCOUNTER 2021-10-03 23:07 | Inpatient (IN) | payer OTHER, MEDICAID ==
[~2021-10-03] VITALS: Ht 165.1 cm; Wt 61.2 kg
[~2021-10-03 23:07] MED LIST changes: -BISA-218 RC; +CHOL100013 GT; -CHOL2400 GT; +LEVO-315 GT; -LEVO500T98 GT; +MONT10TA35 GT; +POTA10TA71 GT; -POTA8TER12 GT; +SIME80TA22 GT
--- NOTE | 2021-10-03 23:14 | NUR ---
CALI TORRES. TAKEN TO BED 1
[2021-10-03 23:25] VITALS: BP 96/54
--- NOTE | 2021-10-03 23:47 | NUR ---
71 Y/O MALE BIBA FROM [facility], C/O G/J-TUBE MALFUNCTION. PT IS NON VERBAL A/OX0 NFP, UNLABORED BREATHING, NONAMBULATORY. PT HAS SUPRA PUBIC SAMPSON CATH AND IS ON 4 L/MIN HOME OXYGEN. HX: CP, PROFOUND INTELLECTUAL DISABILITY, EPILEPSY, HTN, ANEMIA, HYPOTHYROID, DIVERTICULOSIS, PNA NKA
--- NOTE | 2021-10-04 01:04 | NUR ---
ER MD AT BEDSIDE EXAMINING PT
--- NOTE | 2021-10-04 01:17 | NUR ---
PT SITTER AT BEDSIDE
[2021-10-04 01:24] LABS: BASOPHILS # (AUTO) 0.1 K/uL (0.00-0.22); BASOPHILS % (AUTO) 0.6 % (0.0-2.0); EOSINOPHILS # (AUTO) 0.4 K/uL (0-0.4); EOSINOPHILS % (AUTO) 4.7 % (0.0-4.0); HEMOGLOBIN 14.5 g/dL (12.0-18.0); LYMPHOCYTES # (AUTO) 2.7 K/uL (2.0-11.5); LYMPHOCYTES % (AUTO) 29.4 % (20.5-51.1); MEAN CORPUSCULAR HEMOGLOBIN 32 pg (27-31); MEAN CORPUSCULAR HGB CONC 34 g/dL (33-37); MEAN CORPUSCULAR VOLUME 94.6 fL (80-94); MONOCYTES # (AUTO) 1.1 K/uL (0.8-1.0); MONOCYTES % (AUTO) 12.4 % (1.7-9.3); NEUTROPHILS # (AUTO) 4.8 K/uL (1.8-7.7); NEUTROPHILS % (AUTO) 52.9 % (42.2-75.2); PLATELET COUNT (AUTO) 259 K/uL (140-450); RED BLOOD CELL COUNT(AUTO) 4.55 MIL/uL (4.20-6.10); RED CELL DISTRIBUTION WIDTH 13.7 % (11.6-13.7); WHITE BLOOD COUNT (AUTO) 9.2 K/uL (4.8-10.8)
[2021-10-04 01:42] LABS: ALBUMIN 2.9 g/dL (3.4-5.0); ANION GAP 9.1 (8-16); CREATININE 0.7 mg/dL (0.6-1.3); POTASSIUM 4.1 mmol/L (3.5-5.1); TOTAL BILIRUBIN 0.4 mg/dL (0.0-1.0)
[2021-10-04] MEDS ORDERED: OSC500 GT (02:08)
[2021-10-04] MEDS ORDERED: BISA-218 RC (02:19)
[2021-10-04] MEDS ORDERED: LORA10TA19 GT (02:19)
[2021-10-04] MEDS ORDERED: ATRN INH (02:19)
[2021-10-04] MEDS ORDERED: VALP-22 GT (02:19)
[2021-10-04] MEDS ORDERED: DOCU-299 GT (02:19)
[2021-10-04] MEDS ORDERED: ASCO500T95 GT (02:19)
--- NOTE | 2021-10-04 02:33 | NUR ---
SHAHRIAR/SHADI COLLECTED AND WALKED TO LAB
--- NOTE | 2021-10-04 03:37 | NUR ---
Patient will be admitted to care of DR COTE. Admited to Med/Surg. Will go to room 123B. Belongings list completed. Report to SHAYY ELIZALDE.
[2021-10-04 04:00] VITALS: BP 110/70
[2021-10-04] MEDS ORDERED: Z-GUARD PASTE TP PRN (04:00)
[2021-10-04] MEDS ORDERED: Z-GUARD PASTE TP ONE (04:03)
--- NOTE | 2021-10-04 05:19 | NUR ---
ADMISSION OF A 71 YEAR OLD MALE PATIENT UNDER THE CARE OF CORY COTE MD FOR G-TUBE MALFUNCTION. CAREGIVER DESCRIBES IN NOTES FROM [facility] [employer] TUBING RUPTURE DURING FEEDING. ESTATE PLANNING DIRECTOR NOTES BLEEDING/ERYTHEMATOUS EPIDERMIS AT G-TUBE SITE. TONIO OBRIEN RN
[2021-10-04 06:10] VITALS: BP 103/62
--- NOTE | 2021-10-04 07:30 | NUR ---
RECEIVED REPORT FROM TWIST MAKER FOR CONTINUITY OF CARE. PT IS AWAKE, UNABLE TO SPEAK. BREATHING EVEN AND UNLABORED ON ROOM AIR. NO DISTRESS NOTED. NO SIGNS PT IS ON PAIN. MALFUNCTIONED G-TUBE IN PLACE. PT HAS SUPRAPUBIC CATHETER, INTACT AND COLOSTOMY BAG WITH SOME YELLOWISH, SOLID COMBINED WITH LIQUID STOOL. IV SITE ON RIGHT FOOT G22, SL. CALL LIGHT WITHIN REACH, SAFETY MEASURES IN PLACE. WILL CONTINUE TO MONITOR.
[2021-10-04 08:00] VITALS: BP 97/52
[2021-10-04] MEDS ORDERED: ZOLPIDEM 5 MG TAB PO PRN (08:30)
[2021-10-04] MEDS ORDERED: ONDANSETRON 4 MG/2 ML VIAL IM/IVP PRN (08:30)
[2021-10-04] MEDS ORDERED: DOCUSATE SODIUM 100 MG GELCAP PO PRN (08:30)
[2021-10-04] MEDS ORDERED: HYDROcodone/APAP 7.5/325 MG 1 TAB PO PRN (08:30)
[2021-10-04] MEDS ORDERED: POTASSIUM CHLORIDE 10 MEQ TABER PO PRN (08:30)
[2021-10-04] MEDS ORDERED: NACL 0.9% 1,000 ML IV SCH (08:30)
[2021-10-04] MEDS ORDERED: guaiFENesin DM 200/20 MG-10 ML 10 ML UDC PO PRN (08:30)
[2021-10-04] MEDS ORDERED: ACETAMINOPHEN 325 MG TAB PO PRN (08:30)
--- NOTE | 2021-10-04 08:53 | NUR ---
PATIENT HAS BEEN SCREENED AND CATEGORIZED HIGH NUTRITION RISK. PATIENT WILL BE SEEN WITHIN 1-2 DAYS OF ADMISSION. 10/03/ CONSULT RECEIVED FOR DMITRI [address] Addendum: 10/04/21 at [address] *10/04/21-10/05/21
[2021-10-04] MEDS ORDERED: PANTOPRAZOLE 40 MG TABEC PO SCH (09:00)
--- NOTE | 2021-10-04 10:10 | NUR ---
NON-ADMIT PO MED. G-TUBE NOT WORKING. START ON IV NS 60ML/HR. URINE COLLECTED AND SENT TO LAB. PT SAFELY LYING IN BED. NO DISTRESS NOTED. SAFETY PRECAUTIONS IN PLACE. WILL CONTINUE TO MONITOR.
--- NOTE | 2021-10-04 10:11 | NUR ---
WOUND CARE EVALUATION NOTE: SKIN ASSESSMENT DONE WITH THIS 71 Y/O PT ADMITTED WITH GI DYSFUNCTION. PAST MEDICAL HX INCLUDES CP WITH PROFOUND INTELLECTUAL DISABILITY, EPILEPSY, HTN, ANEMIA, HYPOTHYROID, DIVERTICULOSIS, PNA. PT HAS SUPRA PUBIC SAMPSON CATH , RLQ ABD COLOSTOMY. ABOVE INFORMATION OBTAINED FROM ADMISSION H&P. PT EYES OPEN FOLLOW DIRECTIONS, NON-VERBAL, SKIN IS WARM AND DRY, BLE NO HAIR GROWTH, WITH CONTRACTURE, NO EDEMA. DORSAL PEDAL PULSES PRESENT AND NORMAL. CAPILLARY REFILLED <2 SEC. X 10 TOES. PT ADMITTED WITH SKIN ALTERATION TO BILATERAL BUTTOCKS NON-BLANCHABLE REDNESS. POC DISCUSSED WITH PRIMARY RN. INTEGUMENTARY: -LIPS AND ORAL MUCOSA DRY AND CLEAN. SKIN INTACT. -GT AND SUPRA PUBIC MARIAH STOMA SKIN DRY AND CLEAN -INCONTINENT ASSOCIATE DERMATITIS (IAD) TO: B/L GROINS, SCROTAL SKIN RED AND MOIST. -PRESSURE INJURY STAGE 1, RIGHT BUTTOCK 2X1CM, AND LEFT BUTTOCK 3X1 CM, NON-BLANCHABLE REDNESS, MARIAH-WOUND SKIN MOIST INTACT RECOMMENDATIONS: -CLEANSE B/L GROINS, SCROTAL WITH SOAP AND WATER, PAT DRY, APPLY Z GUARD BID AND PRN IF SOILING. -CLEANSE B/L BUTTOCKS WITH SOAP AND WATER, PAT DRY, APPLY Z GUARD AND COVER WITH FOAM DRESSING DAILY AND PRN IF SOILING. -POSITIONING: TURN AND REPOSITION PATIENT Q 2H OR SOONER USE PILLOWS TO KEEP BONY PROMINENCES FROM DIRECT CONTACT WITH SURFACES USE REPOSITIONING WEDGES TO PROVIDE 30-DEGREE ANGLE FOR SIDE LYING POSITIONS OFFLOADING OR FOAM DRESSING TO ALL TUBING TO PREVENT MEDICAL DEVICES RELATED PRESSURE INJURY -RE-EVALUATING AND MANAGING INCONTINENCE MONITOR SKIN CONDITION DURING POSITION CHANGE DO NOT MASSAGE REDNESS, BONY PROMINENCES FREQUENT MARIAH-CARE AND PROVIDE BARRIER CREAMS PRN IF SOILING MOISTURE CONTROL BY OFFER BED DONNELLY/URINAL /ABSORBENT PAD TO WICK AND HOLD MOISTURE KEEP SKIN DRY AND PROTECT FROM FRICTION -MANAGE FRICTION/SHEAR/MOBILITY KEEP HOB AT THE LOWEST LEVEL OF ELEVATION NO MORE THAN 30 DEGREE UNLESS OTHERWISE CONTRAINDICATED USE LIFT SHEET OR TRANSFER DEVICE TO MOVE PATIENT AND PREVENT LATERAL SHEER. PROTECT HEELS, ELBOWS BONY PROMINENCES WITH SKIN BERRIES OR FOAM DRESSING IF EXPOSED TO FRICTION OFFLOAD BILATERAL HEELS BY PLACING PILLOWS UNDER CALVES AT ALL TIMES, UNLESS OTHERWISE CONTRAINDICATED -PRESSURE REDISTRIBUTION SURFACE THERAPY ARELI ISOFLEX MATTRESS -NUTRITION: PLEASE FOLLOW RD RECOMMENDATIONS AND OFFER NUTRITION SUPPLEMENTS IF ORDERED. PLEASE CONTACT WOUND CARE NURSE FOR ANY QUESTION AND CHANGE OF WOUND CONDITION.
[2021-10-04 11:02] LABS: APPEARANCE,URINE SL CLOUDY (CLEAR); BILIRUBIN,URINE NEGATIVE (NEGATIVE); BLOOD, URINE 2+ (NEGATIVE); COLOR,URINE YELLOW (YELLOW); LEUKOCYTE ESTERASE ,URINE 3+ (NEGATIVE); NITRITE, URINE POSITIVE (NEGATIVE); PH,URINE 8.5 (5.0-9.0); UGLUCOSE NEGATIVE (NEGATIVE)
--- NOTE | 2021-10-04 11:07 | NUR ---
DC PLANNING: THE PATIENT CAME FROM [facility] IN [place] SECOND[place] TO LEAKING G-TUBE. PEG WILL BE REPLACED AT BEDSIDE BY THE ATTENDING MD, THE PATIENT WILL DC BACK TO [facility] WHEN CLINICALLY STABLE. SANJUANA ADAMS IS THE SET KEY DRIVER TO CALL FOR TRANSPORT BACK, HER NUMBER IS [phone]. CM WILL FOLLOW. Addendum: 10/06/21 at 1031 by Ayesha Silveira CM DC PLANNING: PATIENT IS S/P G-TUBE REPLACEMENT, TOLERATING RESUMPTION OF FEEDINGS. DC ORDER RECEIVED, CM ENDORSED TO THE PATIENTS SHAYY SINGLETARY TO CALL THE SET KEY DRIVER SANJUANA FOR TRANSPORT AND REPORT. CM WILL FOLLOW.
[2021-10-04 11:16] LABS: RBC,URINE 0-5 /HPF (0-5)
[2021-10-04 11:24] LABS: CALCIUM OXALATE CRYSTALS,UR None Seen /HPF (None Seen); COARSE GRANULAR CASTS,URINE None Seen /LPF (None Seen); FINE GRANULAR CASTS,URINE None Seen /LPF (None Seen); HYALINE CASTS, URINE None Seen /LPF (None Seen); OTHER CASTS, URINE None Seen /LPF (None Seen); OTHER CRYSTALS,URINE None Seen /HPF (None Seen); RED BLOOD CELL CASTS,URINE None Seen /LPF (None Seen); TRICHOMONAS,URINE None Seen /HPF (None Seen); TRIPLE PHOSPHATE CRYSTAL,UR None Seen /HPF (None Seen); URIC ACID CRYSTALS,URINE None Seen /HPF (None Seen); URINE AMORPHOUS URATE None Seen /HPF (None Seen); WAXY CASTS,URINE None Seen /LPF (None Seen); YEAST,URINE None Seen /HPF (None Seen)
[2021-10-04 11:37] LABS: PROTHROMBIN TIME 10.2 secs (10.8-13.4)
[2021-10-04 11:48] LABS: CHOL/HDL RATIO 3.2 (1-4.5); FREE T4 (FREE THYROXINE) 0.55 ng/dL (0.76-1.46); MAGNESIUM 2.3 mg/dL (1.8-2.4); PHOSPHORUS 3.8 mg/dL (2.5-4.9); THYROID STIMULATING HORMONE 10.96 uIU/mL (0.34-3.74)
[2021-10-04] MEDS: DEXT 5% /NACL 0.9% 1,000 ML IV SCH ×2 (12:25→19:39)
[2021-10-04] MEDS: Z-GUARD PASTE TP SCH (13:36)
--- NOTE | 2021-10-04 14:21 | NUR ---
CHANGED PT BEDDINGS WITH HEALTHCARE LIAISON. NOTED REDNESS WITH SMALL OPEN Addendum: 10/04/21 at 1424 by Frances Mandujano LVN ERROR
--- NOTE | 2021-10-04 14:24 | NUR ---
ASSISTED MERCHANDISE EXECUTIVE IN CHANGING PT BEDDINGS. NOTED REDNESS ON BUTTOCKS WITH UNSTAGEABLE ULCER. DRAINED COLOSTOMY BAG WITH 125 ML OF YELLOW LIQUID STOOL. PT TOLERATED WELL. PT NOW RESTING IN BED. NO DISTRESS NOTED. SAFETY PRECAUTIONS IN PLACE. WILL CONTINUE TO MONITOR.
--- NOTE | 2021-10-04 14:47 | NUR ---
10/04/21 RD INITIAL ASSESSMENT COMPLETED PLEASE REFER TO NUTRITION ASSESSMENT UNDER CARE ACTIVITY FOR ESTIMATED NUTRITIONAL NEEDS. 1. WHEN/IF MEDICALLY APPROPRIATE, RECOMMEND VITAL AF 1.2 WITH A GOAL RATE OF 55 ML/HR WITH GAMAL BID -FWF: 200 ML Q6H OR PER MD -START AT 10 ML/HR AND INCREASE BY 10 ML Q4H TOLERAED -WITH GAMAL BID, PT WILL RECEIVE 95% OF ESTIMATED KCAL AND 100% OF ESTIMATED PROTEIN NEEDS; ADEQUATE 2. RD TO FOLLOW-UP 2-3 DAYS, HIGH RISK MEG ARECHIGA RD
[2021-10-04 16:00] VITALS: BP 135/88
--- NOTE | 2021-10-04 17:44 | NUR ---
NEW IV LINE INSERTED, LFA 20G AND RH 20G. Addendum: 10/04/21 at 1750 by Frances Mandujano LVN ERROR
--- NOTE | 2021-10-04 17:50 | NUR ---
DR BARNEY AT BEDSIDE FOR GT REPLACEMENT. PT TOLERATED WELL. ABD XRAY (CIARA) ORDERED PER .
--- NOTE | 2021-10-04 19:40 | NUR ---
GAVE REPORT TO CONE EXAMINER NURSE FOR CONTINUITY OF CARE. ALL NEEDS MET THROUGHOUT SHIFT. ENDORSED ABD XRAY NOT YET DONE, GTUBE NOT YET READY TO USE. PT IS STABLE.
--- NOTE | 2021-10-04 19:41 | NUR ---
RECEIVED REPORT [facility]. PATIENT IS AWAKE AND NON-VERBAL. NO S/SX OF PAIN NOR DISCOMFOT. NO ACUTE RESPIRATORY DISTRESS NOTED. IVF INFUSING WELL ORDERED IN THE RIGHT FOOT, NO REDNESS NOTED. G-TUBE IN PLACE, CLAMPED AT THIS TIME. SKIN WARM AND DRY TO TOUCH. ON BEDREST, WITH SAMPSON CATHETER DRAINING YELLOW URINE BY GRAVITY. BED IN THE LOWEST AND LOCKED POSITION FOR SAFETY, CALL LIGHT WITHIN REACH. WILL CONTINUE TO MONITOR.
[2021-10-04 20:00] VITALS: BP 115/58
--- NOTE | 2021-10-04 20:45 | NUR ---
KUB DONE ORDERED, MADE COMFORTABLE IN BED.
--- NOTE | 2021-10-04 22:20 | NUR ---
CALL PLACED TO DR. GARCIA RE: CIARA RESULT. AWAITING CALL BACK.
--- NOTE | 2021-10-05 | NUR ---
PATIENT ASLEEP. RESTING COMFORTABLY IN BED. BREATHING EVEN AND UNLABORED. SAFETY PRECAUTIONS IN PLACE.
[2021-10-05] MEDS: Z-GUARD PASTE TP SCH ×2 (00:58→13:00)
[2021-10-05 04:00] VITALS: BP 115/59
[2021-10-05] MEDS: DEXT 5% /NACL 0.9% 1,000 ML IV SCH ×2 (04:19→12:45)
--- NOTE | 2021-10-05 04:34 | NUR ---
REPOSITIONED FOR COMFORT. NO S/SX OF PAIN NOR DISCOMFORT. CALL LIGHT IN REACH.
[2021-10-05 05:06] LABS: BASOPHILS # (AUTO) 0.1 K/uL (0.00-0.22); HEMOGLOBIN 13.7 g/dL (12.0-18.0); MONOCYTES # (AUTO) 1.1 K/uL (0.8-1.0); RED CELL DISTRIBUTION WIDTH 13.7 % (11.6-13.7)
[2021-10-05 05:07] LABS: ANION GAP 8.4 (8-16); CARBON DIOXIDE 26.8 mmol/L (21-32); CREATININE 0.8 mg/dL (0.6-1.3); POTASSIUM 4.2 mmol/L (3.5-5.1)
[2021-10-05 05:09] LABS: BASOPHILS % (AUTO) 0.7 % (0.0-2.0); EOSINOPHILS # (AUTO) 0.5 K/uL (0-0.4); EOSINOPHILS % (AUTO) 4.1 % (0.0-4.0); HEMATOCRIT 41.1 % (36-52); LYMPHOCYTES # (AUTO) 1.7 K/uL (2.0-11.5); LYMPHOCYTES % (AUTO) 15.5 % (20.5-51.1); MEAN CORPUSCULAR HEMOGLOBIN 32 pg (27-31); MEAN CORPUSCULAR HGB CONC 33 g/dL (33-37); MEAN CORPUSCULAR VOLUME 95.5 fL (80-94); MONOCYTES % (AUTO) 10.2 % (1.7-9.3); NEUTROPHILS # (AUTO) 7.7 K/uL (1.8-7.7); NEUTROPHILS % (AUTO) 69.5 % (42.2-75.2); PLATELET COUNT (AUTO) 321 K/uL (140-450); WHITE BLOOD COUNT (AUTO) 11.1 K/uL (4.8-10.8)
[2021-10-05] MEDS: METOCLOPRAMIDE 10 MG/10 ML SYRP UDC GT SCH ×3 (06:32→16:30)
--- NOTE | 2021-10-05 06:33 | NUR ---
PATIENT ABLE TO SLEEP DURING THE NIGHT. NO DISTRESS NOTED. ALL NEEDS ATTENDED TO. SAFETY PRECAUTIONS MAINTAINED DURING THE SHIFT, CALL LIGHT REMAINED WITHIN REACH. WILL ENDORSE PLAN OF CARE TO AM RN.
[2021-10-05 08:00] VITALS: BP 123/62
--- NOTE | 2021-10-05 08:00 | NUR ---
GOT REPORT FROM NIGHT NURSE , PT SLEEPING NO SOB. [id number]
[2021-10-05] MEDS: LANSOPRAZOLE 30 MG CAPDR GT SCH (09:00)
[2021-10-05 16:00] VITALS: BP 114/61
--- NOTE | 2021-10-05 18:29 | NUR ---
INCREASED THE FEEDING TO 55 PT TOLERATED 40 FOR AN HOUR AND THERE IS NO RESIDUAL.[id number]
--- NOTE | 2021-10-05 19:35 | NUR ---
RECEIVED PATIENT IN BED ASLEEP, EASILY AROUSABLE BY TOUCH AND NAME CALLING. NO S/SX OF PAIN NOR DISCOMFORT. NO ACUTE RESPIRATORY DISTRESS NOTED. G-TUBE IN PLACE, VERIFIED PLACEMENT VIA AUSCULTATION, NO RESIDUAL NOTED, FEEDING OF VITAL 1.2 AT 55 ML/HR, HEAD OF THE BED ELEVATED AT 35 DEGREES FOR ASPIRATION PRECAUTION. SKIN WARM AND DRY TO TOUCH. COLOSTOMY NOTED IN THE RLQ, NOTED BROWN WATERY STOOL, SUPRAPUBIC CATHETER DRAINING YELLOW URINE BY GRAVITY. BED IN THE LOWEST AND LOCKED POSITION FOR SAFETY, CALL LIGHT WITHIN REACH. WILL CONTINUE TO MONITOR.
[2021-10-05 20:00] VITALS: BP 127/70
--- NOTE | 2021-10-05 20:14 | NUR ---
DR. HENSLEY DISCONTINUE IVF, PT TOLERATING G-TUBE FEEDING ORDERED.
--- NOTE | 2021-10-05 21:55 | NUR ---
NO RESIDUAL FROM G-TUBE. REPOSITIONED FOR COMFORT, HEAD OF THE BED ELEVATED FOR ASPIRATION PRECAUTION.
--- NOTE | 2021-10-06 00:18 | NUR ---
REPOSITIONED PATIENT, HEAD OF THE BED ELEVATED AT 35%. NO RESIDUAL FROM G-TUBE. WILL CONTINUE TO MONITOR.
[2021-10-06] MEDS: Z-GUARD PASTE TP SCH (01:02)
--- NOTE | 2021-10-06 02:15 | NUR ---
PATIENT IS ASLEEP. NO S/SX OF DISCOMFORT. CALL LIGHT IN REACH.
[2021-10-06 04:00] VITALS: BP 128/68
--- NOTE | 2021-10-06 04:34 | NUR ---
ROUNDING DONE. NO RESIDUAL FROM G-TUBE. HEAD OF THE BED ELEVATED AT 35 DEGREES.
[2021-10-06 05:13] LABS: BASOPHILS # (AUTO) 0.1 K/uL (0.00-0.22); BASOPHILS % (AUTO) 0.6 % (0.0-2.0); EOSINOPHILS # (AUTO) 0.5 K/uL (0-0.4); EOSINOPHILS % (AUTO) 4.2 % (0.0-4.0); HEMATOCRIT 41.9 % (36-52); LYMPHOCYTES % (AUTO) 17.6 % (20.5-51.1); MEAN CORPUSCULAR HEMOGLOBIN 32 pg (27-31); MEAN CORPUSCULAR HGB CONC 33 g/dL (33-37); MEAN CORPUSCULAR VOLUME 96.2 fL (80-94); MONOCYTES # (AUTO) 1.1 K/uL (0.8-1.0); NEUTROPHILS # (AUTO) 7.7 K/uL (1.8-7.7); NEUTROPHILS % (AUTO) 67.6 % (42.2-75.2); PLATELET COUNT (AUTO) 260 K/uL (140-450); RED BLOOD CELL COUNT(AUTO) 4.36 MIL/uL (4.20-6.10); RED CELL DISTRIBUTION WIDTH 13.7 % (11.6-13.7); WHITE BLOOD COUNT (AUTO) 11.4 K/uL (4.8-10.8)
[2021-10-06 05:33] LABS: ANION GAP 9.1 (8-16); CARBON DIOXIDE 25.4 mmol/L (21-32); CREATININE 0.8 mg/dL (0.6-1.3); POTASSIUM 3.5 mmol/L (3.5-5.1)
[2021-10-06] MEDS: METOCLOPRAMIDE 10 MG/10 ML SYRP UDC GT SCH ×2 (06:31→11:19)
--- NOTE | 2021-10-06 06:58 | NUR ---
ALL NEEDS ATTENDED TO. NO DISTRESS NOTED. G-TUBE FEEDING TOLERATED WELL. SAFETY PRECAUTIONS MAINTAINED DURING THE SHIFT. WILL ENDORSE CARE TO AM RN.
--- NOTE | 2021-10-06 07:56 | NUR ---
GOT REPORT FROM THE NIGHT NURSE, PT AWAKE. NO RESIDUAL IN J TUBE , THE SAMPSON CATHETER DRAINING TO THE GRAVITY. COLOSTOMY BAG IN PLACE.[id number]
[2021-10-06] MEDS: LANSOPRAZOLE 30 MG CAPDR GT SCH (08:16)
[2021-10-06 10:37] VITALS: BP 103/53
--- NOTE | 2021-10-06 12:14 | NUR ---
PT DISCHARGED, VIA TRANSPORTER , REMOVED IV AND THE DISCHARGE INSTRUCTION GIVEN TO THE TRANSPORTER [place] PATIENT NOT ABLE TO AIDA.[id number]
--- NOTE | 2021-10-06 12:18 | NUR ---
THE COLOSTOMY BAG EMPTIED AND THE FEEDING TUBE OFF WELL . EMPTIED SAMPSON CATHETER WELL.[id number]
== END 2021-10-06 12:10 | disposition home or self-care (01) | DRG 393 ==
LOC: MED 23:07 → MMU 10-04 03:05 → MTU 10-04 03:10
PROVIDERS: ADMIT Student in an Organized Health Care Education/Training Program; ATTEND Student in an Organized Health Care Education/Training Program
DX: K94.23 Gastrostomy malfunction (principal); R53.2 Functional quadriplegia; E44.0 Moderate protein-calorie malnutrition; K56.609 Unspecified intestinal obstruction, unspecified as to partial versus complete obstruction; R13.10 Dysphagia, unspecified; G80.9 Cerebral palsy, unspecified; G40.909 Epilepsy, unspecified, not intractable, without status epilepticus; I10 Essential (primary) hypertension; E03.9 Hypothyroidism, unspecified; M81.0 Age-related osteoporosis without current pathological fracture; J45.909 Unspecified asthma, uncomplicated; K94.13 Enterostomy malfunction; Y83.8 Other surgical procedures as the cause of abnormal reaction of the patient, or of later complication, without mention of misadventure at the time of the procedure; Y82.8 Other medical devices associated with adverse incidents; Z20.822 Contact with and (suspected) exposure to COVID-19; F79 Unspecified intellectual disabilities; N13.9 Obstructive and reflux uropathy, unspecified; I25.10 Atherosclerotic heart disease of native coronary artery without angina pectoris; Y92.89 Other specified places as the place of occurrence of the external cause; Z79.82 Long term (current) use of aspirin; Z79.899 Other long term (current) drug therapy; Z74.01 Bed confinement status; Z68.22 Body mass index [BMI] 22.0-22.9, adult
CPT/HCPCS: 36415; 71045; 74018; 80048; 80053; 81001; 82150; 83036; 83690; 83735; 83880; 84100; 84436; 84439; 84443; 84479; 85025; 85610; 85730; 87081; 87086; 99285; J8597

== ENCOUNTER 2023-03-13 08:41 | Inpatient (IN) | payer OTHER, MEDICAID ==
[~2023-03-13] VITALS: Ht 165.1 cm; Wt 59.0 kg
[~2023-03-13 08:41] MED LIST changes: -ALEN70TA85 GT; +ATRN INH; +BISA-218 RC; +DOCU-299 GT; -FLOR250 GT; -LAM200 PO; -LEVO-315 GT; +LORA10TA19 GT; -MIRABULK GT; +MONT-72 GT; -MONT10TA35 GT; -POTA10TA71 GT; -SIME80TA22 GT; -SYN.1 GT; +VALP-22 GT
[2023-03-13 08:48] VITALS: BP 102/51; PULSE 79; RESP 21; TEMP 97.8; O2SAT 99
[2023-03-13] MEDS ORDERED: IPRATROPIUM 0.02% 0.5 MG/2.5 ML NEBU INH ONE (09:50)
[2023-03-13] MEDS ORDERED: ALBUTEROL 0.083% 2.5 MG/3 ML NEBU INH ONE (09:50)
[2023-03-13] MEDS ORDERED: DEXAMETHASONE 10 MG/ML VIAL IVP ONE (09:55)
[2023-03-13] MEDS ORDERED: NACL 0.9% 1,000 ML IV ONE (10:00)
[2023-03-13] MEDS ORDERED: PIPERACILLIN/TAZOBACTAM 3.375 GM in DEXTROSE 5% 50 ML IV ONE (10:00)
[2023-03-13 10:07] VITALS: PULSE 68; RESP 20; O2SAT 98
[2023-03-13 10:15] LABS: BASOPHILS # (AUTO) 0.1 K/uL (0.00-0.22); BASOPHILS % (AUTO) 0.8 % (0.0-2.0); EOSINOPHILS # (AUTO) 0.2 K/uL (0-0.4); HEMATOCRIT 43.6 % (36-52); HEMOGLOBIN 14.3 g/dL (12.0-18.0); LYMPHOCYTES # (AUTO) 2.1 K/uL (2.0-11.5); LYMPHOCYTES % (AUTO) 17.6 % (20.5-51.1); MEAN CORPUSCULAR HEMOGLOBIN 30 pg (27-31); MEAN CORPUSCULAR HGB CONC 33 g/dL (33-37); MEAN CORPUSCULAR VOLUME 92.8 fL (80-94); MONOCYTES # (AUTO) 1.5 K/uL (0.8-1.0); MONOCYTES % (AUTO) 12.6 % (1.7-9.3); NEUTROPHILS # (AUTO) 8.1 K/uL (1.8-7.7); PLATELET COUNT (AUTO) 241 K/uL (140-450); RED CELL DISTRIBUTION WIDTH 14.5 % (11.6-13.7)
[2023-03-13] MEDS ORDERED: PIPERACILLIN/TAZOBACTAM 3.375 GM VIAL IV ONE ×2 (10:42→21:56)
[2023-03-13 10:43] LABS: FLU A ANTIGEN negative (NEGATIVE); FLU B ANTIGEN negative (NEGATIVE)
[2023-03-13 11:01] LABS: ALANINE AMINOTRANSFERASE 8 U/L (12-78); ALKALINE PHOSPHATASE 87 U/L (50-136); ANION GAP 9.9 (8-16); ASPARTATE AMINOTRANSFERASE 18 U/L (15-37); CALCIUM 8.9 mg/dL (8.5-10.1); CARBON DIOXIDE 29.7 mmol/L (21-32); CHLORIDE 101 mmol/L (98-107); CREATININE 0.9 mg/dL (0.6-1.3); GLUCOSE 103 mg/dL (74-106); POTASSIUM 3.6 mmol/L (3.5-5.1); SODIUM SERUM 137 mmol/L (136-145); TOTAL BILIRUBIN 0.6 mg/dL (0.0-1.0); TOTAL PROTEIN, SERUM 7.2 g/dL (6.4-8.2); UREA NITROGEN, BLOOD 5 mg/dL (7-18)
[2023-03-13 11:19] LABS: CREATINE KINASE, TOTAL 34 U/L (39-308); LIPASE 13 U/L (16-77)
[2023-03-13 12:23] LABS: BILIRUBIN,URINE NEGATIVE (NEGATIVE); BLOOD, URINE 1+ (NEGATIVE); COLOR,URINE YELLOW (YELLOW); LEUKOCYTE ESTERASE ,URINE 2+ (NEGATIVE); NITRITE, URINE POSITIVE (NEGATIVE); PROTEIN,URINE 2+ (NEGATIVE); UGLUCOSE NEGATIVE (NEGATIVE); UROBILINOGEN,URINE 0.2 EU/dL (0.2 - 1)
[2023-03-13 12:31] LABS: APPEARANCE,URINE SLIGHTLY HAZY (CLEAR)
[2023-03-13 12:33] LABS: RBC,URINE 0-5 /HPF (0-5); SQUAMOUS EPITHELIAL CELL,UR 0-3 (FEW) /LPF (0-3 (FEW))
[2023-03-13 12:34] LABS: BACTERIA,URINE 1+ /HPF (None Seen); URINE AMORPHOUS PHOSPHATES 1+ /HPF (None Seen)
[2023-03-13] MEDS ORDERED: VANCOMYCIN PER PHARMACY MC PRN (18:15)
[2023-03-13] MEDS ORDERED: IPRATROPIUM 0.02% 0.5 MG/2.5 ML NEBU INH SCH (18:50)
[2023-03-13 19:37] VITALS: PULSE 75; RESP 21; O2SAT 97
[2023-03-13] MEDS ORDERED: VANCOMYCIN 500 MG VIAL ONE (19:44)
[2023-03-13] MEDS: DEXT 5% / NACL 0.45% 1,000 ML IV SCH (20:00)
[2023-03-13] MEDS: VANCOMYCIN 500 MG in DEXTROSE 5% 100 ML IV SCH (20:00)
[2023-03-13] MEDS ORDERED: NON-FORMULARY ITEM (Cholecalciferol (Vitamin D3) (Vitamin D3) 2,000 U) GT SCH (21:00)
[2023-03-13 21:40] VITALS: BP 93/47; PULSE 75; RESP 18; TEMP 96.3; O2SAT 100
[2023-03-13] MEDS: TOPIRAMATE 100 MG TAB GT SCH (22:16)
[2023-03-13] MEDS: VALPROIC ACID 250 MG/5 ML UDC GT SCH (22:16)
[2023-03-13] MEDS: DIVALPROEX SPRINKLES 125 MG CAPDR GT SCH (22:17)
[2023-03-13] MEDS: MONTELUKAST SODIUM 10 MG TAB GT SCH (22:17)
[2023-03-13] MEDS: ASCORBIC ACID 500 MG TAB GT SCH (22:17)
[2023-03-13] MEDS: PIPERACILLIN/TAZOBACTAM 3.375 GM in DEXTROSE 5% 50 ML IV SCH (22:18)
[2023-03-13] MEDS: CALCIUM CARBONATE 500 MG TAB GT SCH (22:18)
[2023-03-13] MEDS ORDERED: LEVE500T18 GT (23:47)
[2023-03-14] VITALS (7 sets, daily range): BP systolic 90–111; BP diastolic 51–63; PULSE 62–98; RESP 18–20; TEMP 96.1–98; O2SAT 96–100
[2023-03-14] MEDS: DEXT 5% / NACL 0.45% 1,000 ML IV SCH ×2 (04:55→15:20)
[2023-03-14] MEDS ORDERED: PIPERACILLIN/TAZOBACTAM 3.375 GM VIAL IV ONE (05:35)
[2023-03-14] MEDS: PIPERACILLIN/TAZOBACTAM 3.375 GM in DEXTROSE 5% 50 ML IV SCH ×3 (05:40→21:08)
[2023-03-14] MEDS ORDERED: VANCOMYCIN 500 MG VIAL ONE (06:43)
[2023-03-14] MEDS: VANCOMYCIN 500 MG in DEXTROSE 5% 100 ML IV SCH ×2 (06:46→18:47)
[2023-03-14 07:11] LABS: BASOPHILS % (AUTO) 0.4 % (0.0-2.0); EOSINOPHILS # (AUTO) 0.1 K/uL (0-0.4); EOSINOPHILS % (AUTO) 0.7 % (0.0-4.0); HEMATOCRIT 37.4 % (36-52); HEMOGLOBIN 12.3 g/dL (12.0-18.0); LYMPHOCYTES # (AUTO) 2.4 K/uL (2.0-11.5); LYMPHOCYTES % (AUTO) 19.9 % (20.5-51.1); MEAN CORPUSCULAR HEMOGLOBIN 30 pg (27-31); MEAN CORPUSCULAR HGB CONC 33 g/dL (33-37); MONOCYTES # (AUTO) 1.2 K/uL (0.8-1.0); MONOCYTES % (AUTO) 9.9 % (1.7-9.3); NEUTROPHILS # (AUTO) 8.5 K/uL (1.8-7.7); NEUTROPHILS % (AUTO) 69.1 % (42.2-75.2); PLATELET COUNT (AUTO) 222 K/uL (140-450); RED BLOOD CELL COUNT(AUTO) 4.06 MIL/uL (4.20-6.10); RED CELL DISTRIBUTION WIDTH 14.6 % (11.6-13.7); WHITE BLOOD COUNT (AUTO) 12.3 K/uL (4.8-10.8)
[2023-03-14 07:32] LABS: ANION GAP 15.6 (8-16); CALCIUM 7.9 mg/dL (8.5-10.1); CHLORIDE 108 mmol/L (98-107); CREATININE 0.7 mg/dL (0.6-1.3); GLUCOSE 104 mg/dL (74-106); POTASSIUM 3.6 mmol/L (3.5-5.1); SODIUM SERUM 141 mmol/L (136-145); UREA NITROGEN, BLOOD 13 mg/dL (7-18)
[2023-03-14] MEDS ORDERED: BUDESONIDE 0.5 MG/2 ML NEBU INH SCH (09:00)
[2023-03-14] MEDS ORDERED: DEXAMETHASONE 10 MG/ML VIAL IVP SCH (09:00)
[2023-03-14] MEDS: VALPROIC ACID 250 MG/5 ML UDC GT SCH ×2 (09:12→22:44)
[2023-03-14] MEDS: CHOLECALCIFEROL 1,000 IU TAB GT SCH ×2 (09:12→21:08)
[2023-03-14] MEDS: ASCORBIC ACID 500 MG TAB GT SCH ×2 (09:13→21:07)
[2023-03-14] MEDS: TOPIRAMATE 100 MG TAB GT SCH ×2 (09:13→21:07)
[2023-03-14] MEDS: LORATADINE 10 MG TAB GT SCH (09:13)
[2023-03-14] MEDS: DIVALPROEX SPRINKLES 125 MG CAPDR GT SCH ×2 (09:13→21:05)
[2023-03-14] MEDS: ASPIRIN 81 MG TAB.CHEW GT SCH (09:14)
[2023-03-14] MEDS: CALCIUM CARBONATE 500 MG TAB GT SCH ×2 (09:20→21:06)
[2023-03-14] MEDS ORDERED: ALBUTEROL HFA MDI 90 MCG/ACTUATION 8 GM INH PRN (18:50)
[2023-03-14] MEDS ORDERED: ALBUTEROL 0.083% 2.5 MG/3 ML NEBU INH PRN (18:50)
[2023-03-14] MEDS: MONTELUKAST SODIUM 10 MG TAB GT SCH (21:06)
[2023-03-15] MEDS: DEXT 5% / NACL 0.45% 1,000 ML IV SCH (01:05)
[2023-03-15 04:00] VITALS: BP 104/55; PULSE 69; RESP 18; TEMP 97.9; O2SAT 99
[2023-03-15] MEDS: PIPERACILLIN/TAZOBACTAM 3.375 GM in DEXTROSE 5% 50 ML IV SCH ×3 (05:01→20:56)
[2023-03-15] MEDS: VANCOMYCIN 500 MG in DEXTROSE 5% 100 ML IV SCH ×2 (06:34→18:03)
[2023-03-15] MEDS ORDERED: ALBUTEROL SULFATE/IPRATROPIU 3 ML SOL IH PRN (06:50)
[2023-03-15 07:48] VITALS: O2SAT 97
[2023-03-15 08:00] VITALS: BP 103/62; PULSE 70; RESP 18; TEMP 96.9; O2SAT 96; O2SAT 97
[2023-03-15] MEDS: VALPROIC ACID 250 MG/5 ML UDC GT SCH ×2 (09:47→20:52)
[2023-03-15] MEDS: CHOLECALCIFEROL 1,000 IU TAB GT SCH ×2 (09:47→20:55)
[2023-03-15] MEDS: TOPIRAMATE 100 MG TAB GT SCH ×2 (09:48→21:53)
[2023-03-15] MEDS: ASCORBIC ACID 500 MG TAB GT SCH ×2 (09:48→20:55)
[2023-03-15] MEDS: DIVALPROEX SPRINKLES 125 MG CAPDR GT SCH ×2 (09:49→20:52)
[2023-03-15] MEDS: ASPIRIN 81 MG TAB.CHEW GT SCH (09:49)
[2023-03-15] MEDS: LORATADINE 10 MG TAB GT SCH (09:49)
[2023-03-15] MEDS: CALCIUM CARBONATE 500 MG TAB GT SCH ×2 (09:49→20:53)
[2023-03-15 16:00] VITALS: BP 110/62; PULSE 70; RESP 18; TEMP 96.6; O2SAT 99
[2023-03-15 20:00] VITALS: RESP 18; TEMP 97.2; O2SAT 98
[2023-03-15] MEDS: MONTELUKAST SODIUM 10 MG TAB GT SCH (20:53)
[2023-03-16 04:00] VITALS: BP 132/62; PULSE 66; RESP 18; TEMP 98; O2SAT 98
[2023-03-16] MEDS: PIPERACILLIN/TAZOBACTAM 3.375 GM in DEXTROSE 5% 50 ML IV SCH ×3 (04:36→21:34)
[2023-03-16] MEDS: VANCOMYCIN 500 MG in DEXTROSE 5% 100 ML IV SCH ×2 (06:27→19:11)
[2023-03-16 06:48] LABS: BASOPHILS % (AUTO) 0.7 % (0.0-2.0); EOSINOPHILS # (AUTO) 0.4 K/uL (0-0.4); EOSINOPHILS % (AUTO) 6.3 % (0.0-4.0); HEMATOCRIT 40.1 % (36-52); HEMOGLOBIN 13.1 g/dL (12.0-18.0); LYMPHOCYTES # (AUTO) 2.8 K/uL (2.0-11.5); LYMPHOCYTES % (AUTO) 39.5 % (20.5-51.1); MEAN CORPUSCULAR HEMOGLOBIN 31 pg (27-31); MEAN CORPUSCULAR HGB CONC 33 g/dL (33-37); MEAN CORPUSCULAR VOLUME 93.2 fL (80-94); MONOCYTES # (AUTO) 0.9 K/uL (0.8-1.0); MONOCYTES % (AUTO) 13.2 % (1.7-9.3); NEUTROPHILS # (AUTO) 2.8 K/uL (1.8-7.7); NEUTROPHILS % (AUTO) 40.3 % (42.2-75.2); PLATELET COUNT (AUTO) 252 K/uL (140-450); RED BLOOD CELL COUNT(AUTO) 4.31 MIL/uL (4.20-6.10); RED CELL DISTRIBUTION WIDTH 14.9 % (11.6-13.7)
[2023-03-16 07:13] LABS: ANION GAP 9.7 (8-16); CALCIUM 8.5 mg/dL (8.5-10.1); CARBON DIOXIDE 27.2 mmol/L (21-32); CHLORIDE 107 mmol/L (98-107); CREATININE 0.9 mg/dL (0.6-1.3); GLUCOSE 92 mg/dL (74-106); POTASSIUM 3.9 mmol/L (3.5-5.1); SODIUM SERUM 140 mmol/L (136-145); UREA NITROGEN, BLOOD 5 mg/dL (7-18)
[2023-03-16 08:00] VITALS: BP 130/68; PULSE 73; RESP 18; TEMP 96.9; O2SAT 97; O2SAT 99
[2023-03-16] MEDS ORDERED: bisacodyL 10 MG SUPP RC SCH (09:00)
[2023-03-16] MEDS: ASCORBIC ACID 500 MG TAB GT SCH ×2 (09:57→20:47)
[2023-03-16] MEDS: ASPIRIN 81 MG TAB.CHEW GT SCH (09:57)
[2023-03-16] MEDS: TOPIRAMATE 100 MG TAB GT SCH ×2 (09:57→20:47)
[2023-03-16] MEDS: LORATADINE 10 MG TAB GT SCH (09:57)
[2023-03-16] MEDS: CHOLECALCIFEROL 1,000 IU TAB GT SCH ×2 (09:57→20:47)
[2023-03-16] MEDS: DIVALPROEX SPRINKLES 125 MG CAPDR GT SCH ×2 (09:58→20:45)
[2023-03-16] MEDS: CALCIUM CARBONATE 500 MG TAB GT SCH ×2 (09:58→20:46)
[2023-03-16] MEDS: VALPROIC ACID 250 MG/5 ML UDC GT SCH ×2 (09:58→20:44)
[2023-03-16 20:00] VITALS: BP 115/71; PULSE 74; RESP 18; TEMP 97.5; O2SAT 97; O2SAT 99
[2023-03-16] MEDS: MONTELUKAST SODIUM 10 MG TAB GT SCH (20:46)
[2023-03-16 21:37] VITALS: O2SAT 97
[2023-03-17 04:00] VITALS: BP 144/68; PULSE 80; RESP 18; TEMP 97.6; O2SAT 98
[2023-03-17] MEDS: PIPERACILLIN/TAZOBACTAM 3.375 GM in DEXTROSE 5% 50 ML IV SCH ×2 (04:38→13:51)
[2023-03-17] MEDS: VANCOMYCIN 500 MG in DEXTROSE 5% 100 ML IV SCH (06:14)
[2023-03-17 06:53] LABS: BASOPHILS # (AUTO) 0.1 K/uL (0.00-0.22); BASOPHILS % (AUTO) 0.9 % (0.0-2.0); EOSINOPHILS # (AUTO) 0.3 K/uL (0-0.4); EOSINOPHILS % (AUTO) 3.7 % (0.0-4.0); HEMATOCRIT 40.6 % (36-52); HEMOGLOBIN 13.5 g/dL (12.0-18.0); LYMPHOCYTES # (AUTO) 1.9 K/uL (2.0-11.5); LYMPHOCYTES % (AUTO) 21.4 % (20.5-51.1); MEAN CORPUSCULAR HEMOGLOBIN 30 pg (27-31); MEAN CORPUSCULAR HGB CONC 33 g/dL (33-37); MEAN CORPUSCULAR VOLUME 91.2 fL (80-94); MONOCYTES # (AUTO) 1.3 K/uL (0.8-1.0); MONOCYTES % (AUTO) 14.6 % (1.7-9.3); NEUTROPHILS # (AUTO) 5.2 K/uL (1.8-7.7); NEUTROPHILS % (AUTO) 59.4 % (42.2-75.2); PLATELET COUNT (AUTO) 289 K/uL (140-450); RED BLOOD CELL COUNT(AUTO) 4.46 MIL/uL (4.20-6.10); RED CELL DISTRIBUTION WIDTH 14.4 % (11.6-13.7); WHITE BLOOD COUNT (AUTO) 8.7 K/uL (4.8-10.8)
[2023-03-17 07:48] LABS: ALANINE AMINOTRANSFERASE 16 U/L (12-78); ALBUMIN 2.4 g/dL (3.4-5.0); ALKALINE PHOSPHATASE 75 U/L (50-136); ANION GAP 10.8 (8-16); ASPARTATE AMINOTRANSFERASE 18 U/L (15-37); CALCIUM 8.5 mg/dL (8.5-10.1); CARBON DIOXIDE 27.3 mmol/L (21-32); CHLORIDE 103 mmol/L (98-107); GLUCOSE 103 mg/dL (74-106); POTASSIUM 4.1 mmol/L (3.5-5.1); SODIUM SERUM 137 mmol/L (136-145); TOTAL BILIRUBIN 0.4 mg/dL (0.0-1.0); TOTAL PROTEIN, SERUM 6.4 g/dL (6.4-8.2); UREA NITROGEN, BLOOD 15 mg/dL (7-18)
[2023-03-17 08:00] VITALS: PULSE 81; RESP 16; TEMP 97.1; O2SAT 99
[2023-03-17 08:20] VITALS: O2SAT 97
[2023-03-17] MEDS: ASPIRIN 81 MG TAB.CHEW GT SCH (10:21)
[2023-03-17] MEDS: TOPIRAMATE 100 MG TAB GT SCH (10:21)
[2023-03-17] MEDS: ASCORBIC ACID 500 MG TAB GT SCH (10:21)
[2023-03-17] MEDS: CHOLECALCIFEROL 1,000 IU TAB GT SCH (10:22)
[2023-03-17] MEDS: CALCIUM CARBONATE 500 MG TAB GT SCH (10:22)
[2023-03-17] MEDS: VALPROIC ACID 250 MG/5 ML UDC GT SCH (10:23)
[2023-03-17] MEDS: DIVALPROEX SPRINKLES 125 MG CAPDR GT SCH (10:23)
[2023-03-17] MEDS: LORATADINE 10 MG TAB GT SCH (10:31)
[2023-03-17 12:00] VITALS: BP 143/80; PULSE 82; RESP 18; TEMP 97.7; O2SAT 93
[2023-03-17] MEDS ORDERED: VANC750F IV (16:41)
[2023-03-17] MEDS ORDERED: PIPE1SOL IV (16:41)
[2023-03-17 16:43] VITALS: BP 143/80; PULSE 82; RESP 18; TEMP 97.7
[2023-03-18] MEDS ORDERED: VANCOMYCIN 750 MG in DEXTROSE 5% 250 ML IV SCH (09:00)
== END 2023-03-17 17:20 | DRG 871 ==
LOC: MED 08:41 → MTU 12:55
PROVIDERS: ADMIT Preventive Medicine Preventive Medicine/Occupational Environmental Medicine; ATTEND Preventive Medicine Preventive Medicine/Occupational Environmental Medicine
PROC: 05HY33Z Insertion of Infusion Device into Upper Vein, Percutaneous Approach (ICD-10-PCS; principal; 2023-03-17)
PROC: B54MZZA Ultrasonography of Right Upper Extremity Veins, Guidance (ICD-10-PCS; 2023-03-17)
DX: A41.9 Sepsis, unspecified organism (principal); G82.50 Quadriplegia, unspecified; J18.9 Pneumonia, unspecified organism; J96.00 Acute respiratory failure, unspecified whether with hypoxia or hypercapnia; Z16.24 Resistance to multiple antibiotics; N39.0 Urinary tract infection, site not specified; E88.09 Other disorders of plasma-protein metabolism, not elsewhere classified; E03.9 Hypothyroidism, unspecified; G40.909 Epilepsy, unspecified, not intractable, without status epilepticus; K21.9 Gastro-esophageal reflux disease without esophagitis; R13.10 Dysphagia, unspecified; I10 Essential (primary) hypertension; J45.909 Unspecified asthma, uncomplicated; M81.0 Age-related osteoporosis without current pathological fracture; M41.9 Scoliosis, unspecified; K29.70 Gastritis, unspecified, without bleeding; Z20.822 Contact with and (suspected) exposure to COVID-19; I25.10 Atherosclerotic heart disease of native coronary artery without angina pectoris; B96.20 Unspecified Escherichia coli [E. coli] as the cause of diseases classified elsewhere; Z93.3 Colostomy status; Z86.16 Personal history of COVID-19; Z93.1 Gastrostomy status
CPT/HCPCS: 36415; 71045; 71275; 80048; 80053; 80202; 81001; 82550; 83605; 83690; 83880; 84484; 85025; 85379; 85651; 86140; 87040; 87081; 87086; 87635-QW; 93005; 94640; 96361; 96365; 96375; 99291; J1100; J1644; J2543; J3370; J7060; J7613; J7644; Q0092; Q9967